=== PATIENT | female | born 2005 | race Caucasian/White ===

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

== ENCOUNTER 2024-01-25 09:36 | Emergency (ER) | payer OTHER, SELFPAY ==
[2024-01-25 10:14] VITALS: BP 113/51; PULSE 95; RESP 14; TEMP 36.6; O2SAT 99
--- NOTE | 2024-01-25 10:35 | ED_ITS ---
HPI - URI/Sore Throat General Chief Complaint: Upper Respiratory Infection Stated Complaint: Sore Throat/Ear Pain Time Seen by Provider: 01/25/24 10:35 Source: patient and RN notes reviewed Mode of arrival: ambulatory Limitations: no limitations History of Present Illness HPI Narrative: 18-year-old female presents with concern for sore throat and ear pain, sinus congestion and pressure for 8 days. She reports she has taken Tylenol. She denies cough. MD elicited complaint: sore throat, nasal congestion and sinus pain Related Data Allergies Allergy/AdvReac Type Severity Reaction Status Date / Time Penicillins Allergy Intermediate HIVES Verified 03/27/23 13:50 Review of Systems Review of Systems: CONSTITUTIONAL: Denies malaise, chills, sweats, or fever. EYES: Denies visual changes, redness, or discharge. ENT: Reports rhinorrhea, congestion, sinus pain, otalgia and sore throat. CARDIOVASCULAR: Denies chest pain, palpitations, or edema. RESPIRATORY: Denies cough. Denies dyspnea. GASTROINTESTINAL: Denies abdominal pain, nausea, vomiting, diarrhea SKIN: Denies rash or itching. MUSCULOSKELETAL: Denies myalgia. NEUROLOGIC: Denies headache. All systems reviewed & are unremarkable except as noted in HPI and below PMFSH Past Medical History Medical History Fibromyalgia Surgical History Surgical History No pertinent past surgical history Family History Family History Mother Family history non-contributory Social History Social History Smoking status: Never smoker Alcohol intake: never Substance use: never Living arrangements: with family Gender identity (if verbalized by the patient): Female Sexual Orientation (if Verbalized by the Patient): Straight or Heterosexual Spiritual care concerns: No Comments At time of signature, agree with nursing past medical, surgical, social and fa trent history. There is no relevant family history pertinent to the presenting complaint Exam Narrative: GENERAL: Well-appearing, well-nourished, and in no acute distress. HEAD: Normocephalic EYES: PERRLA, conjunctivae clear ENT: Nares clear, turbinates edematous and erythematous. Mucous membranes moist. TM pearly vergara with dull light reflex bilaterally; no tragal tenderness. Oropharynx not erythematous without lesions. Tonsils not enlarged and without exudate, no drooling, no hoarseness, no trismus, uvula midline. NECK: Supple. No lymphadenopathy CHEST: Clear to auscultation, breath sounds equal. No wheezing, rhonchi, rales, or stridor. No respiratory distress, speaks in full sentences. HEART: Regular rate and rhythm. No murmur heard. SKIN: Warm, dry, no rash. NEURO: Alert and oriented x3. PSYCH: Normal mood and affect Course Course Emergency Course: Patient is aware of diagnosis, understands and agrees to treatment plan. Anticipatory guidance given. Patient agrees to follow-up as directed and is aware of reasons to seek care at the emergency department. Portions of this record may have been created with voice recognition software Level of Care: Express Care Visit Vital Signs Vital signs: Vital Signs Temperature 97.8 F 01/25/24 10:14 Pulse Rate 95 01/25/24 10:14 Respiratory Rate 14 01/25/24 10:14 Blood Pressure 113/51 L 01/25/24 10:14 Pulse Oximetry 99 01/25/24 10:14 Oxygen Delivery Room Air 01/25/24 10:14 Temperature 97.8 F 01/25/24 10:14 Pulse Rate 95 01/25/24 10:14 Respiratory Rate 14 01/25/24 10:14 Blood Pressure 113/51 L 01/25/24 10:14 Pulse Oximetry 99 01/25/24 10:14 Oxygen Delivery Room Air 01/25/24 10:14 Reviewed. MDM - URI/Sore Throat MDM Narrative Medical decision making narrative: Differential diagnosis considered: Oleary virus, strep pharyngitis, allergic rhinitis, upper respiratory tract infection, sinusitis, rhinosinusitis, nasophar yngitis. viral pharyngitis, otitis media, otitis externa, pneumonia, bronchitis, viral cough syndrome, viral syndrome, and influenza. Exam findings show no acute concerns or changes; patient is non-toxic appearing and is in no distress. Patient is appropriate for outpatient treatment and follow-up. Lab Data Attestation: I reviewed the patient's lab results. Critical Care Time Critical Care Time Critical Care Time: No Discharge Plan Discharge Clinical Impression: Sinusitis Patient Disposition: Home, Self-Care Condition: Stable Instructions: Antibiotic Form, Sinusitis (ED) Additional Instructions: Take medication as prescribed Nonprescription pain medications, such as acetaminophen (eg, Tylenol) or ibuprofen (eg, Motrin, Advil), are recommended for pain. Flushing the nose and sinuses with a saline solution several times per day has been proven to decrease pain associated with congestion and shorten the duration of symptoms. Nasal steroids (such as Flonase, 2 sprays in each nostril daily) can help to reduce swelling inside the nose, usually within two to three days. These drugs have few side effects and relieve symptoms in most people. Oral decongestants (pseudoephedrine and phenylephrine) may be helpful if you have associated symptoms of ear pain or fullness. Nasal decongestant sprays, including oxymetazoline (Afrin) and phenylephrine (Lino-Synephrine), can be used to temporarily treat congestion. However, these sprays should not be used for more than two to three days due to the risk of rebound congestion (when the nose becomes congested constantly unless the medication is used repeatedly), possible addiction, and long-term consequences of frequent use, including persistent nasal dryness and crusting, which is very difficult to treat once it has developed. Medications to thin secretions (such as guaifenesin) may help to clear mucus. Please follow-up with your primary care doctor in the next 1-2 days. If you cannot follow-up with your primary care doctor please go to the ED for any urgent issues. If you have any worsening of symptoms or any other concerns please go to the ED immediately. Prescriptions: New doxycycline monohydrate 100 mg tablet 100 mg PO BID 7 Days Qty: 14 0RF methylprednisolone [Medrol (Coy)] 4 mg tablets,dose pack See Rx Instructions .ROUTE .COMPLEX Qty: 21 0RF Rx Instructions: orally per package directions Follow-up/Referrals: PHYSICIAN,INTERIOR DESIGNER [Primary Care Provider] - Stand Alone Forms: Work/School Release IP Time of Disposition: 10:41
[2024-01-25 11:06] LABS: EDCOVIDSCREEN Negative (Negative); EDINFLUASCREEN Negative (Negative); EDINFLUBSCREEN Negative (Negative); EDSTREPNEGPOS1 Negative (Negative)
== END 2024-01-25 10:43 | disposition home or self-care (01) ==
PROVIDERS: Emergency Provider Nurse Practitioner
DX: J32.9 Chronic sinusitis, unspecified (principal); Z20.822 Contact with and (suspected) exposure to COVID-19
CPT/HCPCS: 87081; 87426; 87804; 87880; 99213; G0463

== ENCOUNTER 2024-05-10 08:57 | Emergency (ER) | payer OTHER, SELFPAY ==
--- NOTE | ~2024-05-10 | CT_ITS ---
EXAMINATION: CT abdomen pelvis w con DATE: 05/10/2024 10:28 INDICATION: Abdominal pain. Nausea and vomiting. TECHNIQUE: Computed tomography (CT) of the abdomen and pelvis was performed with 100 mL Omnipaque 350 intravenous contrast. Automated exposure control and iterative reconstruction technique were employe d. The dose-length product was 191.89 mGy-cm. COMPARISON: None. FINDINGS: The visualized portions of the lung bases are clear without pneumonia or pleural effusion. The heart size is normal. No pericardial effusion. The liver, gallbladder, spleen, pancreas, adrenal glands, and kidneys are normal. There is an intrauterine device in expected position. There are no di lated loops of bowel. The appendix is normal. There are no pathologically enlarged lymph nodes. There is no free intraperitoneal fluid. The bones are unremarkable. IMPRESSION: 1. No etiology for the patient's symptoms. Reviewed, dictated and finalized at location A. MAN
[2024-05-10 09:06] VITALS: BP 98/58; PULSE 116; RESP 20; TEMP 37.2; O2SAT 98
--- OUTSIDE RECORDS SUMMARY | 2024-05-10 09:23 | XMS_ITS | Clinical Summary ---
Author Organization [facility] Address [address] [place] [address] Care Team Providers Care Sales Promotion Director Name Role Phone Evelyne Avilez MD Primary Care Provider [phone] Source Comments [facility],non-owned Affiliates and Associated Physician Practices is amultiple site organization consisting of ambulatory clinics and hospital sitesin [place], [place], [place]. This disclosure is being madepursuant to the Care Everywhere program and may not contain all information available regarding this patient. Last updated 17.[facility] Allergies Active Allergy Reactions Criticality Noted Date Comments Penicillins Rash Medium 02/23/2018 Medications * Be aware that medications may not be up to date on this document. Alwaysverify current medications with the patient. Medication Sig Dispensed Refills Start Date End Date Status DULoxetine (CYMBALTA) 60 MG capsule 60 mg once daily 06/08/2018 Active diphenhydrAMINE (BENADRYL) 25 MG tablet Take 50 mg by mouth at bedtime Active fluticasone propionate (FLONASE) 50 MCG/ACT nasal spray [place] 2 sprays into each nostril once daily Active cetirizine (ZYRTEC) 10 MG tablet Take 10 mg by mouth once daily Active polyethylene glycol 3350 (MIRALAX) packet Take 17 g by mouth once daily 238 g 1 08/04/2018 Active phenol (CHLORASEPTIC) 1.4 % liquid Take by mouth every 2 hours as needed for Sore Throat 20 mL 1 08/03/2018 Active acetaminophen (TYLENOL) 325 MG tablet Take 2 tablets by mouth every 5 hours as needed Maximum allowable Acetaminophen amount = 4 Grams (4000 mg) / 24 hours. 56 tablet 08/03/2018 Active FLUoxetine (PROZAC) 20 MG capsule Take 20 mg by mouth once daily Active traZODone (DESYREL) 50 MG tablet Take 50 mg by mouth at bedtime Active Active Problems Problem Noted Date Diagnosed Date NSAID long-term use 06/28/2018 Gastroesophageal reflux disease 06/28/2018 Abdominal pain, generalized 05/12/2018 Assessment & Plan (08/03/2018 1:18 PM CDT): Assessment: Jacki also notes B/L lower abdominal pain and had clean catch UA with 1+ WBC and trace LE. Consider UTI, will repeat UA as previous clean catch had many squamous cells. No evidence of peritonitis on exam. repeat UA normal. Pain may be from likely mono-like illness or potentially from constipation Plan: - encourage she resume a bowel regimen Assessment & Plan (08/02/2018 9:04 AM CDT): Assessment: NBNB N/V x1, with persistent diffuse abd pain in the setting of chronic abd pain, baseline constipation, and amplifed pain syndrome. Currently scheduled for endoscopy with GI for assessment of pain on 08/08. Current pain possibly 2/2 constipation vs UTI vs cramping 2/2 upcoming menses. Low suspicion regarding need for surgical intervention for appendicitis or cholecystitis, considering physical exam. Waiting for UA collection, and will order Miralax for constipation. Can proceed with CT or x-ray if pain acutely worsens. Plan: - collect UA - Miralax 17g qd PRN Assessment & Plan (08/02/2018 3:51 AM CDT): Assessment: NBNB N/V x1, with persistent diffuse abd pain in the setting of hx of amplifed pain syndrome, and abd pain. Currently scheduled for endoscopy with GI for assessment of pain. Current pain possibly 2/2 constipation, as 2 BM in past two weeks vs UTI, considering dysuria. Also, LMP ~6weeks ago, potentially related to upcoming menses. Low suspicion for surgical intervention for appendicitis or cholecystitis, considering she is in no acute distress and is largely unreactive on physical exam. Will repeat UA to assess dysuria, and order Miralax as needed for constipation. Can proceed with imaging if pain continues. Plan: - repeat UA - Miralax PRN Amplified musculoskeletal pain 05/12/2018 Hypovitaminosis D 03/14/2018 Hypermobile joints 03/14/2018 Leukopenia 03/14/2018 Arthralgia 02/24/2018 VIDA positive 02/24/2018 Scl-70 antibody positive 02/24/2018 Left knee pain 01/26/2014 Resolved Problems Problem Noted Date Diagnosed Date Resolved Date Dehydration 08/01/2018 08/15/2018 Assessment & Plan (08/03/2018 1:19 PM CDT): Assessment: Jacki is a 12yo female who has had over 1 week of pharyngitis, difficulty swallowing, poor fluid intake and decreasing UOP. Jacki received a 20mL/kg NS bolus at the OSH and was placed on IV fluids, given zofran due to nausea and reported some improvement though continued with pharyngitis and poor intake. Given fevers, over 1 week of symptoms, severe pharyngitis and palpable spleen on exam pt fits EBV as most likely cause. Monospot was negative though sensitivity is not great. EBV PCR would not microsoft exchange architect so not sending at this time. Pt improved quite well with decadron and chloroseptic spray. Tolerating PO now. Plan: - saline lock PIV - encourage PO fluids - begin chloraseptic throat spray - would avoid contact sports for 4-6 weeks Assessment & Plan (08/02/2018 9:11 AM CDT): Assessment: 12 year old F with 1.5w of sore throat and fever, with severe pain and PO avoidance leading to acute dehydration. Good fluid status after OSH bolus, and on mIVF. No respiratory distress, uvula deviation, or other signs concerning for focal abscess. Sore throat likely due to EBV vs non-specific viral pharyngitis, bacterial infection less likely due to lack of exudates, cough. Will initiate decadron and chloraseptic spray in order to assist PO tolerance, and continue with current pain regimen. Will continue to provide fluid support until she is able to eat. Plan: - give one time dose Decadron 10mg - start Chloraseptic 1.4% liquid q2h PRN - continue home Cymbalta 60 mg QHS - continue Ibuprofen 400mg q6h PRN, Tylenol 650mg q6h PRN - Benadryl 50mg QHS PRN - Zyrtec 5mg QD - regular diet, as tolerated - vitals q8h - continuous pulse ox - I&Os Assessment & Plan (08/02/2018 3:49 AM CDT): Assessment: 12 year old F with 1.5w of sore throat and fever, with progressive dysphagia leading to acute dehydration. S/p 1L bolus at OSH, with fluid status now reassuring while being maintained on IVF. No respiratory distress, uvula deviation, or other signs concerning for focal abscess. Sore throat likely due to viral pharyngitis vs EBV. Centor score of 2 with negative rapid strep, and little concern otherwise of bacterial source of pain and fever. Will admit for decreased PO tolerance to maintain fluid status, and monitor symptoms overnight. Plan: - admit to [facility] team, Dr. Martinez - restart Cymbalta 60 mg QHS - start Ibuprofen, Tylenol PRN - Benadryl QHS PRN - Zyrtec QD - vitals q8h - continuous pulse ox - I&Os Diarrhea 06/28/2018 07/26/2018 Rash 02/24/2018 03/24/2018 Family History Medical History Relation Name Comments Other Father gallstones, sto mach ulcers Crohn's Disease Maternal Aunt Other Maternal Aunt IBS, anorexia, GERD Ulcerative Colitis Maternal Aunt Cancer - Colon Maternal Grandfather Other Maternal Grandmother cysts i n liver, IBS, gallstones, pancreaitis, GERD Other Other Several aunts a nd cousins with gluten intolerance Cancer - Colon Paternal Grandmother Celiac Disease Neg Hx Relation Name Status Comments Father Maternal Aunt Maternal Grandfather Maternal Grandmother Other Paternal Grandmother Social History Tobacco Use Types Packs/Day Years Used Date Smoking Tobacco: Passive Smo ke Exposure - Never Smoker Smokeless Tobacco: Never Alcohol Use Standard Drinks/Week Comments No 0 (1 standard drink = 0.6 oz pur e alcohol) Sex and Gender Information Value Date Recorded Sex Assigned at Not on file Gender Identity Not on file Sexual Orientation Not on file Last Filed Vital Signs Vital Sign Reading Time Taken Comments Blood Pressure 125/83 09/05/2021 2:00 AM CDT Pulse 97 09/05/2021 2:00 AM CDT Temperature 37.2 C (98.9 F) 09/05/2021 2:00 AM CDT Respiratory Rate 31 09/05/2021 2:00 AM CDT Oxygen Saturation 97% 09/05/2021 2:00 AM CDT Inhaled Oxygen Concentration - - Weight 56.8 kg (125 lb 3.5 oz) 09/05/2021 12:39 AM CDT Height 158.6 cm (5' 2.44 ) 09/05/2018 12:35 PM C DT Body Mass Index - - Plan of Treatment Health Maintenance Due Date Last Done Comments HIV SCREENING 08/21/2019 HPV VACCINE (1 - 3-dose series) 08/21/2019 CHLAMYDIA/GONORRHEA SCREENING 2020 MENINGOCOCCAL (Group B) VACCINE (1 of 2 - Standard) 2020 HEPATITIS C SCREENING 08/16/2022 DTAP/TDAP/TD VACCINES (1 - Tdap) 08/21/2023 HEPATITIS B VACCINE (1 of 3 - 19+ 3-dose series) 08/21/2023 COVID-19 VACCINE (3 - 2023-2 5 season) 2023 08/11/2020, 07/21/2020 INFLUENZA VACCINE (#1) 2023 8, 04/09/2017, 01/07/2015 DEPRESSION SCREENING 03/08/2024 ZOSTER VACCINE (1 of 2) 2054 HIB VACCINE Aged Out No longer eligi ble based on patient's age to complete this topic MENINGOCOCCAL VACCINE Aged Out No ely maria esther eligible based on patient's age to complete this topic PNEUMOCOCCAL VACCINE Aged Out No long er eligible based on patient's age to complete this topic Advance Directives * Full Code (Latest Code Status on File) Date Activated Date Inactivated Comments 08/02/2018 2:04 AM 08/03/2018 4:29 PM Care Teams Sales Promotion Director Relationship Specialty Start Date End Date Evelyne Avilez MD [address] [address] PCP - General 02/16/18
--- OUTSIDE RECORDS SUMMARY | 2024-05-10 09:24 | XMS_ITS | Patient Health Summary ---
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 381 100 - 400 10 3/uL 09/05/2021 12:24 AM [facility] RDW-SD 40.4 36.0 - 50.0 fL 09/05/2021 12:24 AM [facility] RDW-CV 12.1 11.5 - 14.0 % 09/05/2021 12:24 AM [facility] MPV 9.9(H) 6.0 - 9.5 fL 09/05/2021 12:24 AM [facility] nRBC Absolute 0.00 0 10 3/uL 09/05/2021 12:24 AM [facility] nRBC Auto 0.0 0 /100 WBC 09/05/2021 12:24 AM [facility] Blood BLOOD SPECIMEN / Unknown Venipuncture / Unknown 09/04/2021 11:47 PM CDT 09/04/2021 11:55 PM CDT Sharda Fatima MD LAB - HEMATOLOGY ORD ERABLES [facility] [address] [place] [address], [facility] [phone] * (ABNORMAL) COMPREHENSIVE METABOLIC PANEL (09/04/2021 11:47 PM CDT) Only the most recent of4 resultswithin the time period is included. BUN 11 5 - 19 mg/dL 09/05/2021 12:21 AM [facility] Creatinine 0.69 0.56 - 0.96 mg/dL 09/05/2021 12:21 AM [facility] Sodium 135(L) 136 - 145 mmol/L 09/05/2021 12:21 AM [facility] Potassium 3.3(L) 3.5 - 5.1 mmol/L 09/05/2021 12:21 AM [facility] Chloride 107 98 - 107 mmol/L 09/05/2021 12:21 AM [facility] CO2 20 20 - 28 mmol/L 09/05/2021 12:21 AM [facility] Glucose 143(H) 70 - 115 mg/dL 09/05/2021 12:21 AM [facility] Calcium 9.0 8.4 - 10.2 mg/dL 09/05/2021 12:21 AM [facility] Protein Total 7.3 6.0 - 8.3 g/dL 09/05/2021 12:21 AM [facility] Albumin 4.1 3.4 - 5.0 g/dL 09/05/2021 12:21 AM [facility] Bilirubin Total 0.3 0.3 - 1.2 mg/dL 09/05/2021 12:21 AM [facility] Alkaline Phosphatase 82(L) 100 - 390 U/L 09/05/2021 12:21 AM [facility] ALT 19 5 - 55 U/L 09/05/2021 12:21 AM [facility] AST 24 3 - 35 U/L 09/05/2021 12:21 AM [facility] Anion Gap 11 8 - 18 09/05/2021 12:21 AM [facility] BUN/Creatinine Ratio 16 7 - 23 09/05/2021 12:21 AM [facility] Osmolality Calculated 282 270 - 300 mOsm/kg 09/05/2021 12:21 AM [facility] Blood BLOOD SPECIMEN / Unknown Venipuncture / Unknown 09/04/2021 11:47 PM CDT 09/04/2021 11:55 PM CDT Sharda Fatima MD LAB - CHEMISTRY ALLY BERMUDEZ Performing Organization Address [facility]/ZIP Co de Phone Number [address] [address], [facility] [phone] * LIPASE BLOOD (09/04/2021 11:47 PM CDT) Lipase 15 8 - 78 U/L 09/05/2021 12:21 AM CDT [facility] Blood BLOOD SPECIMEN / Unknown Venipuncture / Unknown 09/04/2021 11:47 PM CDT 09/04/2021 11:55 PM CDT Sharda Fatima MD LAB - CHEMISTRY ALLY BERMUDEZ Performing Organization Address [facility] Co de Phone Number [address] [address], [facility] [phone] * ALCOHOL ETHYL BLOOD (09/04/2021 11:47 PM CDT) Ethanol (mg/dL) <10 <10 mg/dL 12:21 AM CDT [facility] Ethanol Calculated (g/dL) <0.010 <=0.010 g/dL 09/05/2021 12:21 AM CDT [facility] Blood BLOOD SPECIMEN / Unknown Venipuncture / Unknown 09/04/2021 11:47 PM CDT 09/04/2021 11:55 PM CDT Narrative [facility] - 09/05/2021 12:21 AM CDT Ethanol Interp <10: None Detected. Depression of CLAIMS COUNSEL: >100 mg/dl Potentially Critical: >250 mg/dl Potentially Fatal >400 mg/dl Ethanol in the patient's blood will contribute to the osmolar gap. Ethanol's contribution to the osmolar gap can be estimated by dividing the concentration of ethanol in mg/dL by 4.6. This test is for clinical use only and does not equal a CAN for legal purposes. Sharda Fatima MD LAB - CHEMISTRY ALLY BERMUDEZ [facility] [address] [place] [address], [facility] [phone] * HELICOBACTER PYLORI UREASE (STL) (09/05/2018 1:53 PM CDT) Helicobacter pylori Urease Initial Negative Negative 09/06/2018 4:03 PM CDT [facility] Helicobacter pylori Urease Final Negative Negative 09/06/2018 4:03 PM CDT [facility] Comment:This is an appended report. These results have been appended to a previously preliminary verified report. Microbiology GASTRIC BIOPSY SPECIMEN / Unknown Collection / Unknown 09/05/2018 1:53 PM CDT 09/05/2018 2:07 PM CDT Joana Nieto PAYROLL BENEFITS ADMINISTRATOR-YARD INSPECTOR LAB - CECILIA ROBIOLOGY ORDERABLES Performing Organization Address [facility]/ZIP Co de Phone Number [facility] [address] [place] [address] * GROSS + MICRO EXAM (STL) (09/05/2018 1:48 PM CDT) Case Report Surgical Pathology Report Case: [id number] Authorizing Provider: Nichole Iniguez MD Collected: 09/05/2018 01:49 PM Ordering Location: ENDOSCOPY SERVICES Received: 09/06/2018 08:04 AM Pathologist: Kirby Judge MD Specimens: A) - Stomach Biopsy B) - Esophageal Biopsy C) - Duodenal Biopsy D) - Ileum Terminal, biopsy E) - Cecum Biopsy F) - Colon Ascending Biopsy G) - Colon Transverse Biopsy H) - Colon Descending Biopsy I) - Rectosigmoid Biopsy 09/07/2018 11:49 PM CDT [facility] Final Diagnosis A) Stomach, Biopsy: - Chronic superficial gastritis, mild. B) Esophagus, Biopsy: - No pathologic diagnosis. C) Small Intestine, Duodenum, Biopsy: - No pathologic diagnosis. D) Small Intestine, Terminal Ileum, Biopsy: - Acute ileitis, mild. E) Large Intestine, Cecum, Biopsy: - No pathologic diagnosis. F) Large Intestine, Ascending Colon, Biopsy: - No pathologic diagnosis. G) Large Intestine, Transverse Colon, Biopsy: - No pathologic diagnosis. H) Large Intestine, Descending Colon, Biopsy: - No pathologic diagnosis. I) Large Intestine, Rectosigmoid, Biopsy: - No pathologic diagnosis. 09/07/2018 11:49 PM [facility] Clinical History The patient is a 13-year-old girl with abdominal pain who underwent upper endoscopy and colonoscopy. The findings were erosions in the antrum and gastritis. 09/07/2018 11:49 PM [facility] Gross Description The specimens are received fixed in formalin in nine containers for gross and microscopic examination. All containers are labeled with the patient's name, Jacki Ramos. Specimen A, stomach biopsy, consists of two 4-mm soft, yellow-villa tissue fragments submitted in toto as A1. Specimen B, esophageal biopsy, consists of a 3-mm soft, vergara-pink tissue fragment submitted in toto as B1. Specimen C, duodenal biopsy, consists of two soft, yellow-villa tissue fragments, 3 mm and 4 mm in greatest dimension. The specimen is submitted in toto as C1. Specimen D, terminal ileum biopsy, consists of three soft, yellow-villa tissue fragments, 4 mm to 5 mm in greatest dimension. The specimen is submitted in toto as D1. Specimen E, cecum biopsy, consists of two soft, yellow-villa tissue fragments, 3 mm and 4 mm in greatest dimension. The specimen is submitted in toto as E1. Specimen F, ascending colon bio [sic], consists of two soft, yellow-villa tissue fragments, 2 mm and 3 mm in greatest dimension. The specimen is submitted in toto as F1. Specimen G, transverse colon bi [sic], consists of two 3-mm soft, yellow-villa tissue fragments submitted in toto as G1. Specimen H, descending colon bi [sic], consists of two 3-mm soft, yellow-villa tissue fragments submitted in toto as H1. Specimen I, rectosigmoid biopsy, consists of two 3-mm soft, pale villa tissue fragments submitted in toto as I1. (CT/jam) 09/07/2018 11:49 PM [facility] Microscopic Description A) 3 H&E; B) 3 H&E; C) 3 H&E; D) 3 H&E; E) 3 H&E; F) 3 H&E; G) 3 H&E; H) 3 H&E; I) 3 H&E. Sections of specimen A show fragments of gastric mucosa with mild expansion of the lamina propria by mononuclear cells, an occasional lymphoid aggregate, and several glands with attenuated epithelium. There is no significant acute inflammation. No granulomata are present. Sections of specimen B show a single fragment of unremarkable esophageal epithelium. Sections of specimen C show fragments of unremarkable small intestinal mucosa. Sections of specimen D show a single fragment of unremarkable large intestinal mucosa and fragments of small intestinal mucosa with prominence of lymphoid tissue (Peyer's patch) and occasional neutrophils within the lamina propria and surface epithelium. No crypt abscesses or granulomata are present. There is no significant architectural distortion. Sections of specimens E, F, G, H, and I show similar histologic features: the specimens comprise fragments of unremarkable large intestinal mucosa. (DSB) 09/07/2018 11:49 PM [facility] Disclaimer The performance characteristics of all immunohistochemical and indirect immunofluorescence stains (if any) cited in this report were determined by the [facility] in compliance with Clinical Laboratory Improvement Amendments of 1988 (CLIA'88) regulations. Some of these tests rely on the use of analyte-specific reagents and are subject to specific labeling requirements by the U.S. Food and Drug Administration (FDA). Such tests were developed by the [facility] of [facility] and have not been cleared or approved by the FDA. The FDA has determined that such clearance or approval is not necessary. These tests are used for clinical purposes and should not be regarded as investigational or for research. This case has been personally reviewed and interpreted by the attending (teaching) pathologist. 09/07/2018 11:49 PM [facility] Embedded Images 09/07/2018 11:49 PM [facility] Pathology/Cytology ESOPHAGEAL BIOPSY SPECIMEN / Unknown 09/05/2018 1:48 PM CDT 09/06/2018 8:04 AM CDT Miscellaneous samples (specimen) BIOPSY OF STOMACH / Unknown 09/05/2018 1:49 PM CDT 09/06/2018 8:04 AM CDT Miscellaneous samples (specimen) DUODENAL BIOPSY SPECIMEN / Unknown 09/05/2018 1:49 PM CDT 09/06/2018 8:04 AM CDT Miscellaneous samples (specimen) TERMINAL ILEUM RESECTION SPECIMEN / Unknown 09/05/2018 2:04 PM CDT 09/06/2018 8:04 AM CDT Miscellaneous samples (specimen) ENTIRE CECUM / Unknown 09/05/2018 2:43 PM CDT 09/06/2018 8:04 AM CDT Miscellaneous samples (specimen) COLONIC BIOPSY SPECIMEN / Unknown 09/05/2018 2:44 PM CDT 09/06/2018 8:04 AM CDT Miscellaneous samples (specimen) SPECIMEN FROM COLON OBTAINED BY TRANSVERSE COLECTOMY / Unknown 09/05/2018 2:44 PM CDT 09/06/2018 8:04 AM CDT Miscellaneous samples (specimen) COLONIC BIOPSY SPECIMEN / Unknown 09/05/2018 2:45 PM CDT 09/06/2018 8:04 AM CDT Miscellaneous samples (specimen) RECTOSIGMOID STRUCTURE / Unknown 09/05/2018 2:47 PM CDT 09/06/2018 8:04 AM CDT Nichole Iniguez MD LAB - PATHOLOGY/CYTO LOGY ORDERABLES [facility] [address] [place] [id number] * HCG URINE QUALITATIVE - POCT (IP) INTERFACED (09/05/2018 1:31 PM CDT) HCG Qual Urine Negative Negative 09/05/2018 1:28 PM CDT [facility] Urine URINE / Unknown 09/05/2018 1 :31 PM CDT 09/05/2018 1:28 PM CDT Nichole Iniguez MD LAB - POINT OF CARE ORDERABLES [facility] [address] [place] [address] * HCG URINE QUAL POCT NOTIFICATION (09/05/2018 12:30 PM CDT) Comment Notification Label Only - See Separate Report 09/05/2018 2:00 PM CDT [facility] Urine URINE / Unknown 09/05/2018 1 2:30 PM CDT 09/05/2018 12:30 PM CDT Nichole Iniguez MD LAB - URINALYSIS ORD ERABLES [facility] [address] [place] [address] * ENDOSCOPY, COLON, DIAGNOSTIC (09/05/2018 11:59 AM CDT) Report Endoscopy POC _ Patient Name: Jacki Ramos Date of : 2005 Admit Type: Outpatient Age: 13 Gender: Female Race: White Attending MD: Nichole Iniguez , Order #: [id number] _ Procedure: Colonoscopy Indications: Generalized abdominal pain Providers: Nichole Iniguez Referring MD: Evelyne Avilez MD Medicines: Monitored Anesthesia Care Complications: No immediate complications. Estimated blood loss: Minimal. _ Procedure: After I obtained informed consent, the scope was passed under direct vision. Throughout the procedure, the patient's blood pressure, pulse, and oxygen saturations were monitored continuously. The Colonoscope was introduced through the anus and advanced to the terminal ileum. The colonoscopy was performed without difficulty. The patient tolerated the procedure well. The quality of the bowel preparation was adequate. The entire colon was examined. Findings: The perianal and digital rectal examinations were normal. The cleanout was not complete. there was large amount of liquid stool. This had to be suctioned, which rendered the procedure lengthier. The colon (entire examined portion) appeared normal. Biopsies were taken with a cold forceps for histology. Estimated blood loss was minimal. The terminal ileum appeared normal. Biopsies were taken with a cold forceps for histology. Estimated blood loss was minimal. Impression: - The entire examined colon is normal except for excess tortuosity. Biopsied. - The examined portion of the ileum was normal. Biopsied. Recommendation: - Discharge patient to home (with parent). - Await pathology results. - Return to GI clinic in 6 weeks. Procedure Code(s): --- Professional --- 31916, Colonoscopy, flexible; with biopsy, single or multiple --- Technical --- 20403, Colonoscopy, flexible; with biopsy, single or multiple Diagnosis Code(s): --- Professional --- R10.84, Generalized abdominal pain --- Technical --- R10.84, Generalized abdominal pain CPT copyright 2017 [employer]. All rights reserved. The codes documented in this report are preliminary and upon grape picker review may be revised to meet current compliance requirements. Dr. Nichole Iniguez MD Nichole Iniguez, 09/05/2018 2:59:16 PM Number of Addenda: 0 Note Initiated On: 08/31/2018 11:59 AM Procedure Date: 09/05/2018 11:59:00 AM This report has been signed electronically. [facility] 09/05/2018 11:5 9 AM CDT Joana Nieto PAYROLL BENEFITS ADMINISTRATOR-YARD INSPECTOR GI PROCED URE ORDERABLES [facility] [address] [place] [address] * EGD (09/05/2018 11:59 AM CDT) Report Endoscopy POC _ Patient Name: Jacki Ramos Date of : 2005 Admit Type: Outpatient Age: 13 Gender: Female Race: White Attending MD: Nichole Iniguez , Order #: [id number] _ Procedure: Upper GI endoscopy Indications: Generalized abdominal pain Providers: Nichole Iniguez Referring MD: Evelyne Avilez MD Medicines: Monitored Anesthesia Care Complications: No immediate complications. Estimated blood loss: Minimal. _ Procedure: After obtaining informed consent, the endoscope was passed under direct vision. Throughout the procedure, the patient's blood pressure, pulse, and oxygen saturations were monitored continuously. The Endoscope was introduced through the mouth, and advanced to the second part of duodenum. The upper GI endoscopy was accomplished without difficulty. The patient tolerated the procedure well. Findings: The examined esophagus was normal. Biopsies were taken with a cold forceps for histology. Estimated blood loss was minimal. A few localized, non-bleeding erosions were found in the gastric antrum. There were no stigmata of recent bleeding. Biopsies were taken with a cold forceps for Helicobacter pylori testing using CLOtest. Estimated blood loss was minimal. The examined duodenum was normal. Biopsies were taken with a cold forceps for histology. Estimated blood loss was minimal. Impression: - Normal esophagus. Biopsied. - Non-bleeding erosive gastropathy. Biopsied. - Normal examined duodenum. Biopsied. Recommendation: - Discharge patient to home (with parent). - Await pathology results. - Return to GI clinic in 6 weeks. Procedure Code(s): --- Professional --- 65377, Esophagogastrodu odenoscopy, flexible, transoral; with biopsy, single or multiple --- Technical --- 29851, Esophagogastrodu odenoscopy, flexible, transoral; with biopsy, single or multiple Diagnosis Code(s): --- Professional --- R10.84, Generalized abdominal pain --- Technical --- R10.84, Generalized abdominal pain CPT copyright 2017 [employer]. All rights reserved. The codes documented in this report are preliminary and upon grape picker review may be revised to meet current compliance requirements. Dr. Nichole Iniguez MD Nichole Iniguez, 09/05/2018 3:01:57 PM Number of Addenda: 0 Note Initiated On: 08/31/2018 11:59 AM Procedure Date: 09/05/2018 11:59:00 AM This report has been signed electronically. [facility] 09/05/2018 11:5 9 AM CDT Joana Nieto PAYROLL BENEFITS ADMINISTRATOR-YARD INSPECTOR GI PROCED URE ORDERABLES Performing Organization Address City/State/[facility] Co de Phone Number [facility] [address] [place] [address] * URINALYSIS W/MICROSCOPIC REFLEX TO CULTURE (08/02/2018 8:49 AM CDT) Only the most recent of4 resultswithin the time period is included. Color UA Straw Straw, Yellow 08/02/2018 9:10 AM CDT [facility] Clarity UA Clear Clear 08/02/2018 9:10 AM CDT [facility] Glucose UA Negative Negative 08/02/2018 9:10 AM CDT [facility] Bilirubin UA Negative Negative 08/02/2018 9:10 AM [facility] Ketone UA Negative Negative 08/02/2018 9:10 AM [facility] Specific [place] UA 1.006 1.005 - 1.030 08/02/2018 9:10 AM [facility] Blood UA Negative Negative 08/02/2018 9:10 AM [facility] pH UA 6.0 5.0 - 8.0 pH 08/02/2018 9:10 AM [facility] Protein UA Negative Negative 08/02/2018 9:10 AM [facility] Urobilinogen UA Negative Negative mg/dL 08/02/2018 9:10 AM [facility] Nitrite UA Negative Negative 08/02/2018 9:10 AM [facility] Leukocyte UA Negative Negative 08/02/2018 9:10 AM [facility] RBC UA 0-2 None Seen, 0-2, 3-5 # /hpf 08/02/2018 9:10 AM [facility] WBC UA 0-5 None Seen, 0-5 # /hpf 08/02/2018 9:10 AM [facility] Bacteria UA None Seen None Seen 08/02/2018 9:10 AM [facility] Squamous Epithelial Cells 0-2 None Seen, 0-2, 3-5 /hpf 08/02/2018 9:10 AM [facility] Mucus UA 1+ /LPF 08/02/2018 9:10 AM [facility] Reflex Status Culture not indicated 08/02/2018 9:10 AM [facility] Urine URINE SPECIMEN OBTAINED BY CLEAN CATCH PROCEDURE / Unknown Collection / Unknown 08/02/2018 8:49 AM T 08/02/2018 8:54 AM [facility] Narrative [facility] - 08/02/2018 9:10 AM [facility] Anjali Tran MD LAB - URINALYSIS ORD ERABLES [facility] [address] [place] [address] * CULTURE URINE REFLEXED I (05/20/2018 4:28 PM CDT) Reflexive Urine Culture NO CULTURE INDICATED [facility] Comment: Test Performed at: [employer] [id number] [place] [address] HEIDY VASQUEZ DO,MPH 05/20/2018 4:28 PM CDT 05/20/2018 4:29 PM CDT Link Roland DO LAB - MICROB IOLOGY ORDERABLES Performing Organization Address [facility] [place] [place] [address] * C-REACTIVE PROTEIN (05/20/2018 4:28 PM CDT) Only the most recent of3 resultswithin the time period is included. C-Reactive Protein <0.2 <8.0 mg/L [facility] Comment: Test Performed at: [place] [address] HEIDY VASQUEZ DO,MPH Blood BLOOD SPECIMEN / Unknown 05/20/2018 4:28 PM CDT 05/20/2018 4:29 PM CDT Link Roland DO LAB - CHEMIS TRY ORDERABLES Performing Organization Address [facility] Co de Phone Number [facility] [address] [place] [address] * ERYTHROCYTE SEDIMENTATION RATE (05/20/2018 4:28 PM CDT) Only the most recent of3 resultswithin the time period is included. Erythrocyte Sedimentation Rate Westergren 6 < OR = 20 mm/h [facility] Comment: Test Performed at: [employer] [place] [address] HEIDY VASQUEZ DO,MPH Blood BLOOD SPECIMEN / Unknown 05/20/2018 4:28 PM CDT 05/20/2018 4:29 PM CDT Link Roland DO LAB - HEMATO LOGY ORDERABLES Performing Organization Address City/[facility]/ZIP Co de Phone Number [facility] [address] [place] [address] * CHROMATIN ANTIBODY (03/03/2018 2:13 PM LOW PRESSURE BOILER TENDER) Chromatin Nucleosomal Antibody <1.0 NEG <1.0 NEG AI [facility] Comment: Test Performed at: [employer] [id number] [facility] [place] [address] HEIDY VASQUEZ DO,MPH Blood BLOOD SPECIMEN / Unknown 03/03/2018 2:13 PM LOW PRESSURE BOILER TENDER 03/03/2018 2:15 PM LOW PRESSURE BOILER TENDER [employer] [facility] - SEROLO GY ORDERABLES Performing Organization Address [facility] [place] [address] * CULTURE URINE REFLEXED (03/03/2018 2:13 PM LOW PRESSURE BOILER TENDER) [facility] Reflexive Urine Culture CULTURE INDICATED - RESULTS TO FOLLOW [facility] Comment: Test Performed at: [employer] [address] [place] [address] HEIDY VASQUEZ DO,MPH 03/03/2018 2:13 PM LOW PRESSURE BOILER TENDER 03/03/2018 2:15 PM LOW PRESSURE BOILER TENDER Link Vikas Luan [facility] - MICROB IOLOGY ORDERABLES Performing Organization Address [facility] [place] [address] * TISSUE TRANSGLUTAMINASE AB IGA (03/03/2018 2:13 PM LOW PRESSURE BOILER TENDER) Pathologist [facility] TTG Antibody IgA <1 <4 U/mL [facility] Comment: Value Interpretation <4 U/mL: No Antibody Detected >or=4 U/mL: Antibody Detected Test Performed at: [facility]/[address] [address] ALEJANDRO HERNÁNDEZ MD,PHD Blood BLOOD SPECIMEN / Unknown 03/03/2018 2:13 PM LOW PRESSURE BOILER TENDER 03/03/2018 2:15 PM LOW PRESSURE BOILER TENDER Link Duffypraveen [facility] - SEROLO GY ORDERABLES Performing Organization Address [facility] [place] [address] * MARSH (SM) ANTIBODY SHERRI (03/03/2018 2:13 PM LOW PRESSURE BOILER TENDER) SM Antibody <1.0 NEG <1.0 NEG AI [facility] Comment: Test Performed at: [facility] [place] [address] HEIDY VASQUEZ DO,MPH Blood BLOOD SPECIMEN / Unknown 03/03/2018 2:13 PM LOW PRESSURE BOILER TENDER 03/03/2018 2:15 PM LOW PRESSURE BOILER TENDER Link Augustinfátima [facility] Adar ITIS TRY ORDERABLES Performing Organization Address [facility] Co de Phone Number [facility] [id number] [place] [address] * AUTOMOTIVE PROFESSIONAL ANTIBODY (03/03/2018 2:13 PM LOW PRESSURE BOILER TENDER) Pathologist [facility] AUTOMOTIVE PROFESSIONAL Antibody <1.0 NEG <1.0 NEG AI [facility] Comment: Test Performed at: [facility] [place] [address] HEIDY VASQUEZ DO,MPH Blood BLOOD SPECIMEN / Unknown 03/03/2018 2:13 PM LOW PRESSURE BOILER TENDER 03/03/2018 2:15 PM LOW PRESSURE BOILER TENDER Link Augustinfátima [facility] [employer] TRY ORDERABLES Performing Organization Address [facility] [place] [address] * (ABNORMAL) VIDA BLOOD TITER (03/03/2018 2:13 PM LOW PRESSURE BOILER TENDER) Only the most recent of2 resultswithin the time period is included. Pathologist [facility] VIDA Pattern SPECKLED( A) [facility] Comment: Speckled pattern is associated with mixed connective tissue disease (MCTD), systemic lupus erythematosus (SLE), Sjogren's syndrome, dermatomyositis, and systemic sclerosis/polymyositis overlap. VIDA 1:160(H) titer [facility] Comment: Reference Range <1:40 Negative 1:40-1:80 Low Antibody Level >1:80 Elevated Antibody Level Test Performed at: [facility] [place] [address] HEIDY VASQUEZ DO,MPH 03/03/2018 2:13 PM LOW PRESSURE BOILER TENDER 03/03/2018 2:15 PM LOW PRESSURE BOILER TENDER Link Roland DO LAB - CHEMIS TRY ORDERABLES Performing Organization Address [facility]/ZIP Co de Phone Number [facility] [address] [place] [address] * (ABNORMAL) VIDA BLOOD SCREEN W/REFLEX TITER (03/03/2018 2:13 PM LOW PRESSURE BOILER TENDER) Pathologist [facility] VIDA Screen POSITIVE( A) NEGATIVE [facility] Comment: VIDA IFA is a first line screen for detecting the presence of up to approximately 150 autoantibodies in various autoimmune diseases. A positive VIDA IFA result is suggestive of autoimmune disease and reflexes to titer and pattern. Further laboratory testing may be considered if clinically indicated. Visit Physician FAQs for interpretation of all antibodies in the [place], prevalence, and association with diseases at http://education.Bitvore/ faq/KRV783 Test Performed at: [facility] [address] [place] [address] HEIDY VASQUEZ DO,MPH VIDA Pattern SPECKLED( A) [facility] Comment: Speckled pattern is associated with mixed connective tissue disease (MCTD), systemic lupus erythematosus (SLE), Sjogren's syndrome, dermatomyositis, and systemic sclerosis/polymyositis overlap. VIDA 1:160(H) titer [facility] Comment: Reference Range <1:40 Negative 1:40-1:80 Low Antibody Level >1:80 Elevated Antibody Level Test Performed at: [facility] [address] [place] [address] HEIDY VASQUEZ DO,MPH Blood BLOOD SPECIMEN / Unknown 03/03/2018 2:13 PM LOW PRESSURE BOILER TENDER 03/03/2018 2:15 PM LOW PRESSURE BOILER TENDER Link Roland DO LAB - CHEMIS TRY ORDERABLES [facility] [address] [place] [address] * SS-A/SS-B (SJOGRENS) ANTIBODY PANEL (03/03/2018 2:13 PM LOW PRESSURE BOILER TENDER) Pathologist [facility] Sjogren's Antibodies (SSA) <1.0 NEG <1.0 NEG AI [facility] Sjogren's Antibodies (SSB) <1.0 NEG <1.0 NEG AI [facility] Comment: Test Performed at: [place] [address] HEIDY VASQUEZ DO,MPH Blood BLOOD SPECIMEN / Unknown 03/03/2018 2:13 PM LOW PRESSURE BOILER TENDER 03/03/2018 2:15 PM LOW PRESSURE BOILER TENDER Link Roland DO LAB - CHEMIS TRY ORDERABLES Performing Organization Address [facility] Co de Phone Number [place] [phone] [place] [address] * SCLERODERMA 70 (SCL) ANTIBODY (03/03/2018 2:13 PM LOW PRESSURE BOILER TENDER) Only the most recent of2 resultswithin the time period is included. SCL-70 Antibody <1.0 NEG <1.0 NEG AI [facility] Comment: Test Performed at: [place] [address] HEIDY VASQUEZ DO,MPH Blood BLOOD SPECIMEN / Unknown 03/03/2018 2:13 PM LOW PRESSURE BOILER TENDER 03/03/2018 2:15 PM LOW PRESSURE BOILER TENDER Link Roland DO LAB - CHEMIS TRY ORDERABLES Performing Organization Address [facility] [place] [address] * DNA ANTIBODY DOUBLE STRANDED (03/03/2018 2:13 PM LOW PRESSURE BOILER TENDER) dsDNA Antibody <1 IU/mL [facility] Comment: IU/mL Interpretation < or = 4 Negative 5-9 Indeterminate > or = 10 Positive Test Performed at: [facility] [address] HEIDY VASQUEZ DO,MPH Blood BLOOD SPECIMEN / Unknown 03/03/2018 2:13 PM LOW PRESSURE BOILER TENDER 03/03/2018 2:15 PM LOW PRESSURE BOILER TENDER Link Roland DO LAB - HEMATO LOGY ORDERABLES Performing Organization Address [facility] Co de Phone Number [facility] [phone] [place] [address] * (ABNORMAL) VITAMIN D 25-HYDROXY (03/03/2018 2:13 PM LOW PRESSURE BOILER TENDER) Vitamin D, 25 Hydroxy 17(L) 30 - 100 ng/mL [facility] Comment: Vitamin D Status 25-OH Vitamin D: Deficiency: <20 ng/mL Insufficiency: 20 - 29 ng/mL Optimal: > or = 30 ng/mL For 25-OH Vitamin D testing on patients on D2-supplementation and patients for whom quantitation of D2 and D3 fractions is required, the QuestAssureD(TM) 25-OH VIT D, (D2,D3), LC/MS/MS is recommended: order code 51672 (patients >2yrs). For more information on this test, go to: http://education.Parkplatzking/faq/ESI889 (This link is being provided for informational/educational purposes only.) Test Performed at: [facility] [address] HEIDY VASQUEZ DO,MPH Blood BLOOD SPECIMEN / Unknown 03/03/2018 2:13 PM LOW PRESSURE BOILER TENDER 03/03/2018 2:15 PM LOW PRESSURE BOILER TENDER Link Roland DO LAB - CHEMIS TRY ORDERABLES Performing Organization Address [facility] Co de Phone Number [employer] [address] [place] [address] * CULTURE URINE (03/03/2018 2:13 PM LOW PRESSURE BOILER TENDER) Only the most recent of2 resultswithin the time period is included. Pathologist [facility] Culture [facility] Comment: CULTURE, URINE, ROUTINE MICRO NUMBER: [id number] TEST STATUS: FINAL SPECIMEN SOURCE: URINE SPECIMEN QUALITY: ADEQUATE RESULT: No Growth REPORT COMMENT: FASTING:NO Test Performed at: [facility] [id number] HEIDY VASQUEZ DO,MPH 03/03/2018 2:13 PM LOW PRESSURE BOILER TENDER 03/03/2018 2:15 PM LOW PRESSURE BOILER TENDER Link Roland DO LAB - MICROB IOLOGY ORDERABLES Performing Organization Address [facility] Co de Phone Number [employer] [address] [place] [address] * (ABNORMAL) COMPLEMENT C4 (03/03/2018 2:13 PM LOW PRESSURE BOILER TENDER) Complement C4 10(L) 13 - 46 mg/dL [facility] Comment: Test Performed at: [facility] [place] [address] HEIDY VASQUEZ DO,MPH Blood BLOOD SPECIMEN / Unknown 03/03/2018 2:13 PM LOW PRESSURE BOILER TENDER 03/03/2018 2:15 PM LOW PRESSURE BOILER TENDER Link Roland DO LAB - SEROLO GY ORDERABLES Performing Organization Address [facility] [place] [address] * TSH (03/03/2018 2:13 PM LOW PRESSURE BOILER TENDER) Pathologist [facility] TSH 1.83 mIU/L [facility] Comment: Reference Range 1-19 Years 0.50-4.30 Ranges First trimester 0.26-2.66 Second trimester 0.55-2.73 Third trimester 0.43-2.91 Test Performed at: [facility] [place] [address] HEIDY VASQUEZ DO,MPH Blood BLOOD SPECIMEN / Unknown 03/03/2018 2:13 PM LOW PRESSURE BOILER TENDER 03/03/2018 2:15 PM LOW PRESSURE BOILER TENDER Link Roland DO LAB - CHEMIS TRY ORDERABLES Performing Organization Address [facility] [place] [address] * IMMUNOGLOBULINS IGG/IGM/IGA PANEL (03/03/2018 2:13 PM LOW PRESSURE BOILER TENDER) Pathologist [facility] IgA 188 70 - 432 mg/dL [facility] IgG 1277 893 - 1823 mg/dL [facility] IgM 68 52 - 367 mg/dL [facility] Comment: Test Performed at: [facility] SHERRI Kal[address] [facility]ITAL[facility] [place] [address] HEIDY VASQUEZ DO,MPH Blood BLOOD SPECIMEN / Unknown 03/03/2018 2:13 PM LOW PRESSURE BOILER TENDER 03/03/2018 2:15 PM LOW PRESSURE BOILER TENDER Link Roland DO LAB - CHEMIS TRY ORDERABLES [facility] [address] [place] [address] * COMPLEMENT C3 (03/03/2018 2:13 PM LOW PRESSURE BOILER TENDER) Complement C3 110 82 - 173 mg/dL [facility] Comment: Test Performed at: [facility] [address] [address] HEIDY VASQUEZ DO,MPH Blood BLOOD SPECIMEN / Unknown 03/03/2018 2:13 PM LOW PRESSURE BOILER TENDER 03/03/2018 2:15 PM LOW PRESSURE BOILER TENDER Link Roland DO LAB - CHEMIS TRY ORDERABLES Performing Organization Address [facility] Co de Phone Number [facility] [address] [place] [address] * CT SINUS WO CONTRAST (02/18/2018 10:18 AM LOW PRESSURE BOILER TENDER) Anatomical Region Laterality Modality Head Computed Tomogra phy 02/18/2018 10:5 8 AM LOW PRESSURE BOILER TENDER Impressions 02/18/2018 11:29 AM LOW PRESSURE BOILER TENDER Paranasal sinus inflammatory changes as outlined. Polypoid mucosal thickening in the right maxillary and right sphenoid sinuses and scattered opacification in the ethmoid air cells. There is fluffy secretions within the sphenoid and frontal sinuses. Reading Radiologist: Elisabeth Ferguson MD on 02/18/2018 at 11:29 AM Narrative 02/18/2018 11:29 AM LOW PRESSURE BOILER TENDER CT SINUS WO CONTRAST*[id number] EXAMINATION: Computed tomography (CT) of the paranasal sinuses without contrast HISTORY: Chronic sinusitis, unspecified TECHNIQUE: CT of the paranasal sinuses was performed without contrast according to standard protocol. DOSE: CTDIvol: 20.20 mGy, DLP: 287.06 mGy-cm The reported CTDIvol (mGy) and DLP (mGy-cm) values are generated from scan acquisition factors based on a 32 cm body phantom or 16 cm head phantom and may underestimate or overestimate the actual patient dose based on patient size and other factors. COMPARISON: None available. FINDINGS: Post-Surgical Findings: None Sinus Chambers: There is moderate polypoid mucosal thickening in the right maxillary sinus with additional scattered bubbly secretions. There is minimal mucosal thickening in the left maxillary sinus. There are scattered opacification in the ethmoid air cells. There is moderate polypoid mucosal thickening in the right sphenoid sinus. There is fluffy secretions in the left sphenoid sinus and in the frontal sinuses. Nasal Cavities: Visualized nasal cavities are patent but there is mild secretions. Developmental Anomalies: The nasal septum is mildly deviated to the left. There is andra bullosa of the bases of the middle turbinates bilaterally. Ostiomeatal Complex: The right ostiomeatal complex is obliterated with thickened secretions and narrowed due to the presence of a right Nuria cell which is seen opacified. The left ostiomeatal unit is narrowed due to the presence of a small left Nuria cell. The sphenoethmoid foramina are mildly obscured Other: The visualized mastoid air cells and middle ear cavities are clear. The soft tissues of the face and orbits are within normal limits within the limitations of the study. The visualized portions of the brain are grossly unremarkable. Procedure Note Elisabeth Ferguson MD - 02/18/2018 CT SINUS WO CONTRAST*[id number] EXAMINATION: Computed tomography (CT) of the paranasal sinuses without contrast HISTORY: Chronic sinusitis, unspecified TECHNIQUE: CT of the paranasal sinuses was performed without contrast according to standard protocol. DOSE: CTDIvol: 20.20 mGy, DLP: 287.06 mGy-cm The reported CTDIvol (mGy) and DLP (mGy-cm) values are generated from scan acquisition factors based on a 32 cm body phantom or 16 cm head phantom and may underestimate or overestimate the actual patient dose based on patient size and other factors. COMPARISON: None available. FINDINGS: Post-Surgical Findings: None Sinus Chambers: There is moderate polypoid mucosal thickening in the right maxillary sinus with additional scattered bubbly secretions. There is minimal mucosal thickening in the left maxillary sinus. There are scattered opacification in the ethmoid air cells. There is moderate polypoid mucosal thickening in the right sphenoid sinus. There is fluffy secretions in the left sphenoid sinus and in the frontal sinuses. Nasal Cavities: Visualized nasal cavities are patent but there is mild secretions. Developmental Anomalies: The nasal septum is mildly deviated to the left. There is andra bullosa of the bases of the middle turbinates bilaterally. Ostiomeatal Complex: The right ostiomeatal complex is obliterated with thickened secretions and narrowed due to the presence of a right Nuria cell which is seen opacified. The left ostiomeatal unit is narrowed due to the presence of a small left Nuria cell. The sphenoethmoid foramina are mildly obscured Other: The visualized mastoid air cells and middle ear cavities are clear. The soft tissues of the face and orbits are within normal limits within the limitations of the study. The visualized portions of the brain are grossly unremarkable. IMPRESSION Paranasal sinus inflammatory changes as outlined. Polypoid mucosal thickening in the right maxillary and right sphenoid sinuses and scattered opacification in the ethmoid air cells. There is fluffy secretions within the sphenoid and frontal sinuses. Reading Radiologist: Elisabeth Ferguson MD on 02/18/2018 at 11:29 AM Evelyne Avilez MD CT ORDERABLES * (ABNORMAL) LUPUS ERYTHEMATOSUS PANEL (06/11/2016 10:32 AM CDT) VIDA Screen POSITIVE( A) NEGATIVE [facility] ([facility]) Comment: VIDA IFA is a first line screen for detecting the presence of up to approximately 150 autoantibodies in various autoimmune diseases. A positive VIDA IFA result is suggestive of autoimmune disease and reflexes to titer and pattern. Further laboratory testing may be considered if clinically indicated. Visit Physician FAQs for interpretation of all antibodies in the [place], prevalence, and association with diseases at http://education.Jell Creative.Drizly/ faq/NLF529 dsDNA Antibody <1 IU/mL [facility] ([facility]) Comment: IU/mL Interpretation < or = 4 Negative 5-9 Indeterminate > or = 10 Positive Sjogren's Antibodies (SSA) <1.0 NEG <1.0 NEG AI [facility] ([facility]) Sjogren's Antibodies (SSB) <1.0 NEG <1.0 NEG AI [facility] ([facility]) SHERRI Marsh (SM) Antibody <1.0 NEG <1.0 NEG AI [facility] ([facility]) SHERRI AUTOMOTIVE PROFESSIONAL Antibody <1.0 NEG <1.0 NEG AI [facility] ([facility] ) Chromatin Nucleosomal <1.0 NEG <1.0 NEG AI [facility] ([facility]) Complement C3 205(H) 90 - 180 mg/dL [facility] ([facility]) Complement C4 23 16 - 47 mg/dL [facility] ([facility]) Complement Total CH50 >60(H) 31 - 60 U/mL [facility] ([facility]) Comment: Test Performed at: [facility] [address] [facility] [place] [address] HEIDY VASQUEZ DO,MPH 06/11/2016 10:3 2 AM CDT 06/11/2016 10:34 AM CDT Link Roland DO LAB - SEROLO GY ORDERABLES Performing Organization Address [facility] de Phone Number [facility] ([facility]) * TAYLOR-NOBLE VIRUS CHRONIC/ACTIVE INFECTION (06/11/2016 10:32 AM CDT) Pathologist [facility] Taylor-Noble Virus Antibody IgM VCA < OR = 0.90 [facility] ([facility]) Comment: Value Interpretation ----- < or = 0.90 Negative 0.91-1.09 Equivocal > or = 1.10 Positive Taylor-Noble Virus Antibody IgG Viral Capsid Antigen < OR = 0.90 [facility] ([facility]) Comment: Value Interpretation ----- < or = 0.90 Negative 0.91-1.09 Equivocal > or = 1.10 Positive Taylor-Noble Virus Nuclear Antigen Antibody IgG < OR = 0.90 [facility] ([facility]) Comment: Value Interpretation ----- < or = 0.90 Negative 0.91-1.09 Equivocal > or = 1.10 Positive Interpretation No Taylor-Noble virus antibody detected. [facility] ([facility]) Comment: Test Performed at: [facility] [address] [address] [place] [address] HEIDY VASQUEZ DO,MPH Serum 06/11/2016 10:3 2 AM CDT 06/11/2016 10:34 AM CDT Link Roland DO LAB - SEROLO GY ORDERABLES Performing Organization Address [facility] de Phone Number [facility] ([facility]) * (ABNORMAL) PARVOVIRUS B19 IGG/IGM AB PANEL (06/11/2016 10:32 AM CDT) Parvovirus B19 Antibody IgG 5.3(H) [facility] ([facility]) Comment: REFERENCE RANGE: <0.9 INTERPRETIVE CRITERIA: <0.9 Negative 0.9 - 1.1 Equivocal >1.1 Positive IgG persists for years and provides life-long immunity. To diagnose current infection, consider Parvovirus B19 DNA, PCR. Parvovirus B19 Antibody IgM 3.2(H) [facility] ([facility]) Comment: REFERENCE RANGE: <0.9 INTERPRETIVE CRITERIA: <0.9 Negative 0.9 - 1.1 Equivocal >1.1 Positive Results from any one IgM assay should not be used as a sole determinant of a current or recent infection. Because IgM tests can yield false positive results and low levels of IgM antibody may persist for months post infection, reliance on a single test result could be misleading. If an acute infection is suspected, consider obtaining a new specimen and submit for both IgG and IgM testing in two or more weeks. To diagnose current infection, consider Parvovirus B19 DNA, PCR. REPORT COMMENT: SPECIMEN TYPE->URINE FASTING:NO Test Performed at: [facility] [address] [place] [address] Alma LUIS 06/11/2016 10:3 2 AM CDT 06/11/2016 10:34 AM CDT Link Roland DO LAB - SEROLO GY ORDERABLES [facility] ([facility]) * ASO TITER (06/11/2016 10:32 AM CDT) ASO 13 <150 IU/mL [facility] ([facility]) Comment: Test Performed at: [facility] [address] [place] [address] HEIDY VASQUEZ DO,MPH Blood specimen (specimen) BLOOD SPECIMEN / Unknown 06/11/2016 10:32 AM CDT 06/11/2016 10:34 AM CDT Link Roland LAB - Curetis TRY ORDERABLES Performing Organization Address City/[facility]/ZIP Co de Phone Number [facility] ([facility]) * THYROID PEROXIDASE ANTIBODY (06/11/2016 10:32 AM CDT) Thyroid Peroxidase TPO Antibody 1 <9 IU/mL [facility] ([facility]) Comment: Test Performed at: [facility] [address] [place] [employer] [place] [address] HEIDY VASQUEZ DO,MPH Blood specimen (specimen) BLOOD SPECIMEN / Unknown 06/11/2016 10:32 AM CDT 06/11/2016 10:34 AM CDT Link Fernandezrajesh [facility] [employer] TRY ORDERABLES Performing Organization Address [facility]/ZIP Ok de Phone Number [facility] ([facility]) * THYROGLOBULIN ANTIBODY (06/11/2016 10:32 AM CDT) Thyroglobulin Antibody <1 < or = 1 IU/mL [facility] ([facility]) Comment: Test Performed at: [employer] [facility] [address] [employer] [address] HEIDY VASQUEZ DO,MPH Blood specimen (specimen) BLOOD SPECIMEN / Unknown 06/11/2016 10:32 AM CDT 06/11/2016 10:34 AM CDT Link Roland [employer] TRY ORDERABLES Performing Organization Address [facility]/ZIP Co de Phone Number [facility] ([facility]) * HLA TYPING B27 (06/11/2016 10:32 AM CDT) HLA-B27 NEGATIVE NEGATIVE [facility] ([facility]) Comment: Test Performed at: [facility] [address] [place] [address] KATHY CRAWFORD MD PHD Blood specimen (specimen) BLOOD SPECIMEN / Unknown 06/11/2016 10:32 AM CDT 06/11/2016 10:34 AM CDT Link Bean Luan [facility] [employer] TRY ORDERABLES Performing Organization Address [facility]/ZIP Co de Phone Number [facility] ([facility]) * TAYLOR-NOBLE VIRUS AB TO EARLY AG IGG (06/11/2016 10:32 AM CDT) Pathologist [facility] Taylor-Noble Virus Early Antigen Antibody < OR = 0.90 [facility] ([facility]) Comment: Value Interpretation ----- < or = 0.90 Negative 0.91-1.09 Equivocal > or = 1.10 Positive Test Performed at: [employer] [address] HEIDY VASQUEZ DO,MPH Blood specimen (specimen) BLOOD SPECIMEN / Unknown 06/11/2016 10:32 AM CDT 06/11/2016 10:34 AM CDT Link Vikas Luan [facility] [employer] TRY ORDERABLES Performing Organization Address [facility] de Phone Number [facility] ([facility]) * DNASE ANTIBODY B (06/11/2016 10:32 AM CDT) Pathologist [facility] DNase B Antibody <95 <376 U/mL [facility] ([facility]) Comment: Test Performed at: [facility] [address] [address] TAMI BARRETO MD,FCAP Blood specimen (specimen) BLOOD SPECIMEN / Unknown 06/11/2016 10:32 AM CDT 06/11/2016 10:34 AM CDT Link Roland DO [employer] TRY ORDERABLES Performing Organization Address City/[facility]/ZIP Co de Phone Number [facility] ([facility]) * ALDOLASE (06/11/2016 10:32 AM CDT) [facility] Aldolase 4.9 3.4 - 8.6 U/L [facility] ([facility]) Comment: Test Performed at: [facility] [address] [address] [place] [address] HEIDY VASQUEZ DO,MPH Blood specimen (specimen) BLOOD SPECIMEN / Unknown 06/11/2016 10:32 AM CDT 06/11/2016 10:34 AM CDT Link Roland DO LAB - CHEMIS TRY ORDERABLES Performing Organization Address [facility] Phone Number [facility] ([facility]) * RHEUMATOID ARTHRITIS PANEL (06/11/2016 10:32 AM CDT) [facility] Rheumatoid Factor 9 <14 IU/mL [facility] ([facility]) Cyclic Citrullinated Peptide Antibody <16 UNITS [facility] ([facility]) Comment: Reference Range Negative: <20 Weak Positive: 20-39 Moderate Positive: 40-59 Strong Positive: >59 Interpretation These serologic results may be found in 10-20% of patients with polyarthritis that is [facility] ([facility]) Interpretation clinically and radiologically indistinguishable from RA. [facility] ([facility]) Comment: Test Performed at: [facility] [id number] HEIDY VASQUEZ DO,MPH 06/11/2016 10:3 2 AM CDT 06/11/2016 10:34 AM CDT Link Roland DO LAB - SEROLO GY ORDERABLES Performing Organization Address [facility] Phone Number [facility]) * LDH BLOOD (06/11/2016 10:32 AM CDT) [facility] LDH Total 179 110 - 250 U/L [facility] ([facility]) Comment: Test Performed at: [place] [id number] HEIDY VASQUEZ DO,MPH Blood specimen (specimen) BLOOD SPECIMEN / Unknown 06/11/2016 10:32 AM CDT 06/11/2016 10:34 AM CDT Link Roland DO LAB - CHEMIS TRY ORDERABLES Performing Organization Address [facility] Phone Number [facility] ([facility]) * CK BLOOD (06/11/2016 10:32 AM CDT) [facility] CK Total 61 <143 U/L [facility] ([facility]) Comment: Test Performed at: [employer] [facility] [address] [place] [address] HEIDY VASQUEZ DO,MPH Blood specimen (specimen) BLOOD SPECIMEN / Unknown 06/11/2016 10:32 AM CDT 06/11/2016 10:34 AM CDT Link Roland DO LAB - CHEMIS TRY ORDERABLES [facility] ([facility]) * LAB RESULTS ORDER (03/15/2014 2:13 PM LOW PRESSURE BOILER TENDER) Narrative 03/15/2014 2:13 PM LOW PRESSURE BOILER TENDER Ordered by an unspecified provider. Scanned Document LAB - THERAPEUTIC DR ROBLERO MONITORING ORDERABLES * XR ABD OBSTR SERIES (02/20/2014 12:05 PM LOW PRESSURE BOILER TENDER) Anatomical Region Laterality Modality Abdomen Radiographic Phyllis ging 02/20/2014 12:0 8 PM LOW PRESSURE BOILER TENDER Impressions 02/20/2014 12:09 PM LOW PRESSURE BOILER TENDER Moderate to large amount of stool in the colon. No evidence of intestinal obstruction. Narrative 02/20/2014 12:09 PM LOW PRESSURE BOILER TENDER Obstructive series performed February 20, 2014. History: Right lower quadrant pain. AP supine and upright views of the abdomen and pelvis were obtained. There is a moderate to large amount of stool throughout the colon. There is no evidence of intestinal obstruction. No heterotopic soft tissue calcifications or abnormal soft tissue mass densities are seen. The lung bases are clear. The visualized bony structures are intact. Procedure Note Chelita Mills MD - 02/20/2014 Obstructive series performed February 20, 2014. History: Right lower quadrant pain. AP supine and upright views of the abdomen and pelvis were obtained. There is a moderate to large amount of stool throughout the colon. There is no evidence of intestinal obstruction. No heterotopic soft tissue calcifications or abnormal soft tissue mass densities are seen. The lung bases are clear. The visualized bony structures are intact. IMPRESSION Moderate to large amount of stool in the colon. No evidence of intestinal obstruction. Vikas Pressley MD DIAGNOSTIC IMAGING O RDERABLES * US ABD FOR APPENDICITIS (02/20/2014 12:00 PM LOW PRESSURE BOILER TENDER) Anatomical Region Laterality Modality Abdomen Ultrasound 02/20/2014 12:0 3 PM LOW PRESSURE BOILER TENDER Impressions 02/20/2014 12:07 PM LOW PRESSURE BOILER TENDER No sonographic evidence of appendicitis. These findings were discussed with Dr. Robles by Dr. Trent at 12:05 PM on 02/20/2014. Narrative 02/20/2014 12:07 PM LOW PRESSURE BOILER TENDER Exam: Abdominal sonogram limited History: 8-year-old female with abdominal pain Comparison: None Findings: No blind-ending distended tubular structure is seen on graded compression ultrasound of the right lower quadrant. No free fluid is seen in the pelvis. Procedure Note Makayla Trent MD - 02/20/2014 Exam: Abdominal sonogram limited History: 8-year-old female with abdominal pain Comparison: None Findings: No blind-ending distended tubular structure is seen on graded compression ultrasound of the right lower quadrant. No free fluid is seen in the pelvis. IMPRESSION No sonographic evidence of appendicitis. These findings were discussed with Dr. Robles by Dr. Trent at 12:05 PM on 02/20/2014. Vikas Pressley MD US ORDERABLES * XR CHEST PA AND LATERAL(most commonly ordered) (03/28/2013 12:35 PM LOW PRESSURE BOILER TENDER) Anatomical Region Laterality Modality Chest Radiographic Phyllis ging 03/28/2013 12:4 9 PM LOW PRESSURE BOILER TENDER Impressions 03/28/2013 12:49 PM LOW PRESSURE BOILER TENDER No acute disease Narrative 03/28/2013 12:49 PM LOW PRESSURE BOILER TENDER Chest, PA and lateral March 282013 Lungs, heart, and mediastinum are normal. There is no infiltrate, effusion, or pneumothorax. Procedure Note Jake Betts MD - 03/28/2013 Chest, PA and lateral March 282013 Lungs, heart, and mediastinum are normal. There is no infiltrate, effusion, or pneumothorax. IMPRESSION No acute disease Argenis Ge MD DIAGNOSTIC IMAGING ORDERABLES * URINALYSIS ROUTINE AUTO (03/28/2013 12:31 PM LOW PRESSURE BOILER TENDER) Color UA Yellow Straw, Yellow, Dark Yellow 03/28/2013 12:48 PM [facility] Clarity UA Clear 03/28/2013 12:48 PM [facility] Specific [place] UA <=1.005 1.005 - 1.030 03/28/2013 12:48 PM [facility] pH UA 6.5 5.0 - 8.0 pH 03/28/2013 12:48 PM [facility] Protein UA Negative Negative 03/28/2013 12:48 PM [facility] Blood UA Negative Negative 03/28/2013 12:48 PM [facility] Leukocyte UA Negative Negative 03/28/2013 12:48 PM [facility] Nitrite UA Negative Negative 03/28/2013 12:48 PM [facility] Glucose UA Negative Negative 03/28/2013 12:48 PM [facility] Ketone UA Negative Negative 03/28/2013 12:48 PM [facility] Bilirubin UA Negative Negative 03/28/2013 12:48 PM [facility] Urobilinogen UA 0.2 0.1 - 1.0 EU/dL 03/28/2013 12:48 PM [facility] Urine Microscopy Urine microscopy to follow 03/28/2013 12:48 PM [facility] Urine URINE SPECIMEN OBTAINED BY CLEAN CATCH PROCEDURE / Unknown 03/28/2013 12:31 PM [facility] 03/28/2013 12:37 PM [facility] Argenis Ge MD LAB - URINALYSIS O RDERABLES Performing Organization Address City/State/[facility] Co de Phone Number [facility] [address] [place] [address] * URINALYSIS MICROSCOPIC ONLY (03/28/2013 12:31 PM [facility]) RBC UA 0-2 0-2, 2-5 # /hpf 03/28/2013 12:58 PM [facility] WBC UA 0-2 0-2, 2-5 # /hpf 03/28/2013 12:58 PM [facility] Bacteria UA Trace None Seen, Trace 03/28/2013 12:58 PM [facility] Epithelial Cell UA 0-2 0-2, 2-5 03/28/2013 12:58 PM [facility] Urine URINE SPECIMEN OBTAINED BY CLEAN CATCH PROCEDURE / Unknown 03/28/2013 12:31 PM LOW PRESSURE BOILER TENDER 03/28/2013 12:37 PM LOW PRESSURE BOILER TENDER Argenis Ge MD LAB - URINALYSIS O RDERABLES [facility] [address] [place] [address] Care Teams Consulting Software Engineer Relationship Specialty Start Date End Date Evelyne Avilez MD [address] [place] [id number] PCP - General 02/16/18
--- OUTSIDE RECORDS SUMMARY | 2024-05-10 09:24 | XMS_ITS | Encounter Summary ---
Author Organization [facility] Address [address] [place] [address] Care Team Providers Care Colorer Hides And Skins Name Role Phone Evelyne Avilez MD Primary Care Provider Encounter Details Date Type Department Care Team (Late st Contact Info) Description 08/05/2018 Telephone [facility] - GI [address] [place] [address] Joana Nieto, PACKAGE DESIGNER-DISTRICT DIRECTOR [address] [place] [address] Social History Tobacco Use Types Packs/Day Years Used Date Smoking Tobacco: Passive Smo ke Exposure - Never Smoker Smokeless Tobacco: Never Alcohol Use Standard Drinks/Week Comments No 0 (1 standard drink = 0.6 oz pur e alcohol) Sex and Gender Information Value Date Recorded Sex Assigned at Not on file Gender Identity Not on file Sexual Orientation Not on file documented as of this encounter Functional Status Functional Status Response Date of Assess ment Is person deaf or have serious hearing difficult y? No 08/03/2018 Is person blind or have serious difficulty seein g? No 08/03/2018 Does person have serious dif ficulty walking/climbing stairs? No 08/03/2018 Does person have difficulty dressing/bathing? No 08/03/2018 Does person have difficulty doing errands alone? No 08/03/2018 Cognitive Status Response Date of Assessm ent Does person have difficulty concentrating/remembering/making decisions? No 08/03/2018 documented as of this encounter Miscellaneous Notes * Telephone Encounter - Grace Wiley RN - 09/01/2018 9:50 AM CDT Should be scheduled for EGD with colonoscopy (per notes, no dilation). * Telephone Encounter - Suly Grimm - 09/01/2018 9:34 AM CDT [facility] in the procedure room left a message wanting to verify that the patient needs an EGD w/dilation and not an EGD. * Telephone Encounter - Alda Menon RN - 08/05/2018 3:55 PM CDT New prep letter mailed home. * Telephone Encounter - Veronica Isaacs - 08/05/2018 3:43 PM CDT Mom called to cancel procedure on 08/08, rescheduled EGD w/dilation and Colon to 09/05/18 @ [address] Iniguez. email prep instructions to [email or web address] documented in this encounter Plan of Treatment Not on file documented as of this encounter Visit Diagnoses Not on filedocumented in this encounter Care Teams Colorer Hides And Skins Relationship Specialty Start Date End Date Evelyne Avilez MD [address] [place] [id number] PCP - General 02/16/18 documented as of this encounter
--- OUTSIDE RECORDS SUMMARY | 2024-05-10 09:24 | XMS_ITS | Referral Summary ---
Author Organization [facility] Address [address] [facility] [place] [address] Care Team Providers Care Communications Program Manager Name Role Phone Evelyne Avilez MD Primary Care Provider [phone] Source Comments [facility],non-owned Affiliates and Associated Physician Practices is amultiple site organization consisting of ambulatory clinics and hospital sitesin [place], [place], [place] and [place]. This disclosure is being madepursuant to the Care Everywhere program and may not contain all information available regarding this patient. Last updated 17.[facility] Allergies Active Allergy Reactions Criticality Noted Date [...] fluticasone propionate (FLONASE) 50 MCG/ACT nasal spray [place] 2 sprays into each nostril once daily [...] is not great. EBV PCR would not jacket changer so not sending at this time. Pt [...] I&Os Diarrhea 06/28/2018 07/26/2018 Rash 02/24/2018 03/24/2018 Social [...] C DT Body Mass Index - - Functional Status Functional Status Response Date of [...] person have difficulty concentrating/remembering/making decisions? No 08/03/2018 Plan of Treatment Not on file Advance Directives * Full Code (Latest Code Status on File) Date Activated Date Inactivated Comments 08/02/2018 2:04 AM 08/03/2018 4:29 PM Care Teams Communications Program Manager Relationship Specialty Start Date End Date Evelyne Avilez MD [address] [place] [address] PCP - General 02/16/18
[2024-05-10 09:29] LABS: Basophils Percent Auto 0.3 % (0.2-1.2); Hematocrit 43.9 % (37.0-47.0); Hemoglobin 14.9 g/dL (12.0-15.0); Immature Granulocyte Absolute 0.02 K/mm3 (0.00-0.031); Immature Granulocyte Percent A 0.3 % (0-0.5); Lymphocytes Absolute Auto 0.32 K/mm3 (0.9-3.2); Mean Corpuscular HGB Conc 33.9 g/dl (32-36); Mean Corpuscular Hemoglobin 31.6 pg (26-34); Mean Platelet Volume 9.8 fl (7.4-10.4); Monocytes Absolute Auto 0.3 K/mm3 (0.1-0.6); Monocytes Percent Auto 4.1 % (2.6-8.5); Neutrophils Absolute Auto 5.8 K/mm3 (1.3-6.7); Neutrophils Percent Auto 90.3 % (45.5-73.1); Platelet Count Result 294 k/mm3 (150-375); Red Blood Count 4.72 M/mm3 (4.2-5.4); Red Cell Distribution Width 11.9 % (11.5-14.5); White Blood Count 6.4 K/mm3 (4.5-10.0)
[2024-05-10 09:39] LABS: Lactic Acid Reflex 1.2 mmol/L (0.7-2.0)
[2024-05-10 09:40] LABS: Alanine Aminotransferase 32 U/L (6-35); Albumin Level 4.6 g/dL (3.7-5.6); Alkaline Phosphatase 46 U/L (45-116); Anion Gap 14 mmol/L (4-12); Aspartate Amino Transferase 29 U/L (14-36); Bilirubin,Total 0.9 mg/dL (0.2-1.3); Blood Urea Nitrogen 13 mg/dL (8-21); Calcium 8.9 mg/dL (8.9-10.7); Carbon Dioxide 21 mmol/L (22-30); Chloride 100 mmol/L (98-107); Estimated CRCL calculation 117 ml/min; Estimated Glomerular Filt Rate > 60; Glucose 107 mg/dL (65-110); Lipase 13 U/L (23-300); Potassium 3.5 mmol/L (3.4-5.0); Sodium 135 mmol/L (134-143)
[2024-05-10 09:49] LABS: BEDSIDEPREGUCG Negative (Negative)
[2024-05-10] MEDS: SODIUM CHLORIDE 0.9% IV 1,000 ML 999 ML IV CONT ×2 (10:01→10:25)
[2024-05-10 10:02] VITALS: BP 108/84; PULSE 113; RESP 16; O2SAT 98
[2024-05-10 10:02] LABS: Add Urine Microscopic? YES; Appearance Urine Clear (Clear); Bacteria Urine 2+ /hpf; Bilirubin Urine Negative (Negative); Blood Urine Negative (Negative); Color Urine Yellow (Yellow); Glucose Urine UA Negative (Negative); Ketones Urine 3+ mg/dL (Negative); Leukocyte Esterase Ur Negative LEU/UL (Negative); Nitrate Urine Negative (Negative); Non Pathogenic Casts 0-2; Protein Urine Trace mg/dL (Negative); RBC Urine 0-2 /hpf (0-2); Specific Grav Ur 1.037 (1.001-1.035); Squamous Epithelial Cell Urine Moderate /hpf (Few); Urobilinogen Urine 0.2 mg/dL (<2.0); WBC Urine 0-5 /hpf (0-3); pH Urine 5.5 (5.0-9.0)
[2024-05-10 10:05] LABS: Influenza A QL RT-PCR Negative (Negative); Influenza B QL RT-PCR Negative (Negative); RSV RNA, RT-PCR Negative (Negative); SARS-CoV-2 RNA PCR Negative (Negative)
--- OUTSIDE RECORDS SUMMARY | 2024-05-10 10:19 | XMS_ITS | Clinical Summary ---
Author Organization [facility] Address [address] [place] [address] Care Team Providers Care Manager [address] Name Role Phone Evelyne Avilez MD Primary Care Provider [phone] Source Comments [facility],non-owned Affiliates and Associated Physician Practices is amultiple site organization consisting of ambulatory clinics and hospital sitesin [place], [place], [place] and [place]. This disclosure is being madepursuant to the Care Everywhere program and may not contain all information available regarding this patient. Last updated 17.[facility] Allergies Active Allergy Reactions Criticality [...] fluticasone propionate (FLONASE) 50 MCG/ACT nasal spray [place] 2 sprays into each nostril once daily [...] is not great. EBV PCR would not slubber frame changer so not sending at this time. [...] 2:04 AM 08/03/2018 4:[address] Relationship Specialty Start Date End Date Evelyne Avilez MD [address] [address] PCP - General 02/16/18
--- OUTSIDE RECORDS SUMMARY | 2024-05-10 10:20 | XMS_ITS | Patient Health Summary ---
Author Organization [facility] Address [address] [place] [address] Care Team Providers Care Climate Change Risk Assessor Name Role Phone Evelyne Avilez MD Primary Care Provider [phone] Note from [facility],non-owned Affiliates and Associated Physician Practices is amultiple site organization consisting of ambulatory clinics and hospital sitesin [place], [place], [place] and [place]. This disclosure is being madepursuant to the Care Everywhere program and may not contain all information available regarding this patient. Last updated 17.[facility] Allergies * Penicillins(Rash) -Medium Criticality Medications * Be aware that medications may not be up to date on this document. Alwaysverify current medications with the patient. * DULoxetine (CYMBALTA) 60 MG capsule(Started 06/08/2018) 60 mg once daily * diphenhydrAMINE (BENADRYL) 25 MG tablet Take 50 mg by mouth at bedtime * fluticasone propionate (FLONASE) 50 MCG/ACT nasal spray [place] 2 sprays into each nostril once daily [...] for Arthralgia, unspecified joint, VIDA positive * NETWORK SUPPORT TECHNICIAN ANTIBODY(Performed 03/03/2018) Performed for Arthralgia, unspecified joint, [...] 25-HYDROXY(Performed 03/03/2018) Performed for Arthralgia, unspecified joint, VIAD positive * TSH(Performed 03/03/2018) Performed for Arthralgia, [...] Yellow Straw, Yellow 09/05/2021 2:44 AM CDT [facility] Clarity UA Turbid(A) Clear 09/05/2021 2:44 AM CDT [facility] Specific [place] UA 1.016 1.005 - 1.030 09/05/2021 2:44 AM [facility] pH UA 7.0 5.0 - 8.0 pH 09/05/2021 2:44 AM [facility] Protein UA Negative Negative 09/05/2021 2:44 AM [facility] Glucose UA Negative Negative 09/05/2021 2:44 AM [facility] Ketone UA Trace(A) Negative 09/05/2021 2:44 AM [facility] Bilirubin UA Negative Negative 09/05/2021 2:44 AM [facility] Blood UA 1+(A) Negative 09/05/2021 2:44 AM [facility] Nitrite UA Positive(A) Negative 09/05/2021 2:44 AM [facility] Leukocyte Esterase 1+(A) Negative 09/05/2021 2:44 AM [facility] Urobilinogen UA 2.0(A) Negative mg/dL 09/05/2021 2:44 AM [facility] RBC UA 0-2 None Seen, 0-2, 3-5 /HPF 09/05/2021 2:44 AM [facility] WBC UA 21-50(A) None Seen, 0-5 /HPF 09/05/2021 2:44 AM [facility] Bacteria UA 1+(A) None /HPF 09/05/2021 2:44 AM [facility] Squamous Epithelial Cells UA 0-2 None Seen, 0-2, 3-5 /HPF 09/05/2021 2:44 AM [facility] Mucus UA 1+ /LPF 09/05/2021 2:44 AM [facility] Amorphous Crystals Many(A) None /HPF 09/05/2021 2:44 AM [facility] Urine URINE SPECIMEN OBTAINED BY CLEAN CATCH PROCEDURE / Unknown Collection / Unknown 09/05/2021 2:08 AM T 09/05/2021 2:16 AM [facility] - 09/05/2021 2:44 AM T Sharda Fatima MD LAB - URINALYSIS ORD ERABLES [address] [address], [facility] [phone] * (ABNORMAL) URINE DRUG SCREEN IMMUNOASSAY (09/05/2021 2:08 AM T) [facility] Amphetamines Screen Urine Negative Negative : < 1000 ng/mL 09/05/2021 2:35 AM [facility] Barbiturates Screen Urine Negative Negative : < 200 ng/mL 09/05/2021 2:35 AM [facility] Benzodiazepine Screen Urine Negative Negative : < 200 ng/mL 09/05/2021 2:35 AM [facility] Opiates Urine Positive(A) Negative : < 300 ng/mL 09/05/2021 2:35 AM [facility] Comment:Positive urine opiat e screening results should be confirmed by another generally accepted non-immunological method such as gas chromatography or mass spectrometry. Cocaine Metabolites Urine Negative Negative : < 300 ng/mL 09/05/2021 2:35 AM [facility] Phencyclidine Screen Urine Negative Negative : < 25 ng/ml 09/05/2021 2:35 AM [facility] Cannabinoids Screen Urine Positive(A) Negative : <50 ng/mL 09/05/2021 2:35 AM [facility] Comment:Positive urine canna binoids (THC) screening results should be confirmed by another generally accepted non-immunological method such as gas chromatography or mass spectrometry. Methadone Screen Urine Negative Negative : < 300 ng/mL 09/05/2021 2:35 AM [facility] Fentanyl Screen Urine Negative Negative : <1.0 ng/mL 09/05/2021 2:35 AM [facility] Urine URINE / Unknown Collection / Unknown 09/05/2021 2:08 AM CDT 09/05/2021 2:16 AM [facility] - 09/05/2021 2:35 AM [facility] The Urine Toxicology Screening Panel does not screen for Propoxyphene, Meprobamate, Carisoprodol, Trazodone, glqq-hkw-bqnzdcc medications and/or volatiles (Acetone, Isopropanol, Methanol or Ethylene Glycol). Ethanol, Salicylate, Acetaminophen, Tricyclic Antidepressants and several therapeutic drugs may be individually assayed in serum or plasma specimen. Toxicology testing by the [facility] is an aid to medical diagnosis and treatment of patients. No documented chain of custody was maintained. Results are intended to be used for clinical purposes only. Sharda Fatima MD LAB - URINE CHEMISTR Y ORDERABLES Performing Organization Address City/State/[facility] Co de Phone Number [id number] [place] [address], [facility] [phone] * XR LUMBAR SPINE 2 OR 3VW [...] Yane Goode on 09/05/2021 at 8:19 AM Narrative 09/05/2021 [...] TYPE VERIFICATION (09/04/2021 11:59 PM CDT) Pathologist [facility] ABO Rh A POS 09/05/2021 12:54 AM CDT [facility] Blood Bank BLOOD SPECIMEN / Unknown Venipuncture / Unknown 09/04/2021 11:59 PM CDT 09/05/2021 12:22 AM CDT Irasema Guthrie MD LAB - BLOOD BANK ORD ERABLES [facility] [address] [place] [address], [facility] [phone] * (ABNORMAL) TEG 6 GLOBAL HEMOSTASIS W/ LYSIS (09/04/2021 11:47 PM CDT) Citrated Kaolin R (Reaction Time) 4.5(L) 4.6 - 9.1 min 09/05/2021 1:04 AM CDT [facility] Citrated Kaolin LY30 (Lysis) 1.0 0.0 - 2.6 % 09/05/2021 1:04 AM CDT [facility] Citrated RapidTEG MA (Max Amplitude) 63.5 52.0 - 70.0 mm 09/05/2021 1:04 AM CDT [facility] Citrated Functional Fibrinogen MA (Max Amplitude) 21.8 15.0 - 32.0 mm 09/05/2021 1:04 AM CDT [facility] Blood BLOOD SPECIMEN / Unknown Venipuncture / Unknown 09/04/2021 11:47 PM CDT 09/04/2021 11:53 PM CDT Sharda Fatima MD LAB - HEMATOLOGY ORD ERABLES Performing Organization Address [facility]/ZIP Co de Phone Number [address] [address], [place] [phone] * PTT [facility] (09/04/2021 11:47 PM CDT) APTT 26.3 23.0 - 38.4 Seconds 09/05/2021 12:08 AM [facility] Comment:Suggested therapeuti c range for full dose I.V. unfractionated heparin therapy for venous thromboembolism is 71 to 109 seconds. Blood BLOOD SPECIMEN / Unknown Venipuncture / Unknown 09/04/2021 11:47 PM CDT 09/04/2021 11:58 PM CDT Narrative [facility] - 09/05/2021 12:08 AM CDT Reference intervals for this test are valid for adults at [facility]. Pediatric reference intervals may be slightly different. Sharda Fatima MD LAB - COAGULATION OR DERABLES Performing Organization Address City/[facility]/ZIP Co de Phone Number [address] [address], [place] [phone] * (ABNORMAL) PT-INR [facility] (09/04/2021 11:47 PM CDT) PT 15.3(H) 12.1 - 14.8 Seconds 09/05/2021 12:07 AM CDT [facility] INR 1.2 See Comment 09/05/2021 12:07 AM CDT [facility] Comment:The suggested therap eutic range for standard coumadin (warfarin) therapy is an INR of 2.0-3.0. For high-risk patients (Mechanical Mitral Valve Prosthesis, etc.), the suggested prophylactic therapeutic range is an INR of 2.5-3.5. Blood BLOOD SPECIMEN / Unknown Venipuncture / Unknown 09/04/2021 11:47 PM CDT 09/04/2021 11:58 PM CDT Narrative [facility] - 09/05/2021 12:07 AM CDT Reference intervals for this test are valid for adults at [facility]. Pediatric reference intervals may be slightly different. Sharda Fatima MD LAB - COAGULATION OR DERABLES Performing Organization Address City/[facility]/ZIP Co de Phone Number [address] [address], [facility] [phone] * TYPE + SCREEN PANEL (09/04/2021 11:47 PM CDT) Antibody Screen NEG 12:33 AM CDT [facility] ABO Rh A POS 09/05/2021 12:33 AM CDT [facility] Blood Bank BLOOD SPECIMEN / Unknown Venipuncture / Unknown 09/04/2021 11:47 PM CDT 09/04/2021 11:56 PM CDT Sharda Fatima MD LAB - BLOOD BANK ORD ERABLES Performing Organization Address City/[facility]/ZIP Co de Phone Number [facility] [address] [place] [address], [employer] [phone] * (ABNORMAL) DIFFERENTIAL MANUAL (09/04/2021 11:47 PM CDT) WBC (corrected for NRBC) 14.8 10 3/uL 09/05/2021 4:50 AM CDT [facility] Total Cell Count 100 09/05/2021 4:50 AM CDT [facility] Neutrophils Absolute Manual 11.25(H) 1.40 - 8.60 10 3/uL 09/05/2021 4:50 AM [facility] Comment:(BANDS+SEGS) x WBC = NEUT # (ANC) Lymphocyte Absolute Manual 2.52 0.60 - 5.90 10 3/uL 09/05/2021 4:50 AM T [facility] Monocytes Absolute Manual 0.59 0.18 - 1.43 10 3/uL 09/05/2021 4:50 AM [facility] Eosinophils Absolute Manual 0.15 0.00 - 0.88 10 3/uL 09/05/2021 4:50 AM [facility] Neutrophil % Manual 76 31 - 78 % 09/05/2021 4:50 AM [facility] Lymphocyte % Manual 17 13 - 54 % 09/05/2021 4:50 AM [facility] Monocytes % Manual 4 4 - 13 % 09/05/2021 4:50 AM [facility] Eosinophils % Manual 1 0 - 8 % 09/05/2021 4:50 AM [facility] Atypical Lymphocyte % Manual 2(H) 0 % 09/05/2021 4:50 AM [facility] Platelet Estimate Adequate Adequate 09/05/2021 4:50 AM [facility] RBC Morphology Normal 09/05/2021 4:50 AM [facility] Blood BLOOD SPECIMEN / Unknown Venipuncture / Unknown 09/04/2021 11:47 PM CDT 09/04/2021 11:55 PM CDT Sharda Fatima MD LAB - HEMATOLOGY ORD ERABLES [facility] [address] [place] [address], [facility] [phone] * (ABNORMAL) CBC W AUTO DIFFERENTIAL (09/04/2021 11:47 PM CDT) Only the most recent of4 resultswithin the time period is included. WBC 14.8(H) 4.5 - 11.0 10 3/uL 09/05/2021 12:24 AM [facility] RBC 4.15 4.10 - 5.10 10 6/uL 09/05/2021 12:24 AM [facility] Hemoglobin 12.9 12.0 - 16.0 g/dL 09/05/2021 12:24 AM [facility] Hematocrit 37.7 36.0 - 47.0 % 09/05/2021 12:24 AM [facility] MCV 90.8 78.0 - 98.0 fL 09/05/2021 12:24 AM [facility] MCH 31.1 25.0 - 35.0 pg 09/05/2021 12:24 AM [facility] MCHC 34.2 31.0 - 37.0 g/dL 09/05/2021 12:24 AM [facility] Platelet Count 381 100 - 400 10 3/uL 09/05/2021 12:24 AM [facility] RDW-SD 40.4 36.0 - 50.0 fL 09/05/2021 12:24 AM [facility] RDW-CV 12.1 11.5 - 14.0 % 09/05/2021 12:24 AM [facility] MPV 9.9(H) 6.0 - 9.5 fL 09/05/2021 12:24 AM [facility] nRBC Absolute 0.00 0 10 3/uL 09/05/2021 12:24 AM [facility] nRBC Auto 0.0 0 /100 WBC 09/05/2021 12:24 AM [facility] Blood BLOOD SPECIMEN / Unknown Venipuncture / Unknown 09/04/2021 11:47 PM CDT 09/04/2021 11:55 PM CDT Sharda Fatima MD LAB - HEMATOLOGY ORD ERABLES [facility] [address] [place] [address], [facility] [phone] * (ABNORMAL) COMPREHENSIVE METABOLIC PANEL (09/04/2021 11:47 PM CDT) Only the most recent of4 resultswithin the time period is included. BUN 11 5 - 19 mg/dL 09/05/2021 12:21 AM [facility] Creatinine 0.69 0.56 - 0.96 mg/dL 09/05/2021 12:21 AM [facility] Sodium 135(L) 136 - 145 mmol/L 09/05/2021 12:21 AM [facility] Potassium 3.3(L) 3.5 - 5.1 mmol/L 09/05/2021 12:21 AM [facility] Chloride 107 98 - 107 mmol/L 09/05/2021 12:21 AM [facility] CO2 20 20 - 28 mmol/L 09/05/2021 12:21 AM [facility] Glucose 143(H) 70 - 115 mg/dL 09/05/2021 12:21 AM [facility] Calcium 9.0 8.4 - 10.2 mg/dL 09/05/2021 12:21 AM [facility] Protein Total 7.3 6.0 - 8.3 g/dL 09/05/2021 12:21 AM [facility] Albumin 4.1 3.4 - 5.0 g/dL 09/05/2021 12:21 AM [facility] Bilirubin Total 0.3 0.3 - 1.2 mg/dL 09/05/2021 12:21 AM [facility] Alkaline Phosphatase 82(L) 100 - 390 U/L 09/05/2021 12:21 AM [facility] ALT 19 5 - 55 U/L 09/05/2021 12:21 AM [facility] AST 24 3 - 35 U/L 09/05/2021 12:21 AM [facility] Anion Gap 11 8 - 18 09/05/2021 12:21 AM [facility] BUN/Creatinine Ratio 16 7 - 23 09/05/2021 12:21 AM [facility] Osmolality Calculated 282 270 - 300 mOsm/kg 09/05/2021 12:21 AM [facility] Blood BLOOD SPECIMEN / Unknown Venipuncture / Unknown 09/04/2021 11:47 PM CDT 09/04/2021 11:55 PM CDT Sharda Fatima MD LAB - CHEMISTRY ALLY BERMUDEZ Performing Organization Address [facility]/ZIP Co de Phone Number [address] [address], [facility] [phone] * LIPASE BLOOD (09/04/2021 11:47 PM CDT) Lipase 15 8 - 78 U/L 09/05/2021 12:21 AM CDT [facility] Blood BLOOD SPECIMEN / Unknown Venipuncture / Unknown 09/04/2021 11:47 PM CDT 09/04/2021 11:55 PM CDT Sharda Fatima MD LAB - CHEMISTRY ALLY BERMUDEZ Performing Organization Address [facility] Co de Phone Number [address] [address], [facility] [phone] * ALCOHOL ETHYL BLOOD (09/04/2021 11:47 PM CDT) Ethanol (mg/dL) <10 <10 mg/dL 12:21 AM CDT [facility] Ethanol Calculated (g/dL) <0.010 <=0.010 g/dL 09/05/2021 12:21 AM CDT [facility] Blood BLOOD SPECIMEN / Unknown Venipuncture / Unknown 09/04/2021 11:47 PM CDT 09/04/2021 11:55 PM CDT Narrative [facility] - 09/05/2021 12:21 AM CDT Ethanol Interp <10: None Detected. Depression of TARGETING ACQUISITION OFFICER: >100 mg/dl Potentially Critical: >250 mg/dl Potentially [...] Fatima MD LAB - CHEMISTRY ALLY BERMUDEZ [facility] [address] [place] [address], [facility] [phone] * HELICOBACTER PYLORI UREASE (STL) (09/05/2018 1:53 PM CDT) Helicobacter pylori Urease Initial Negative Negative 09/06/2018 4:03 PM CDT [facility] Helicobacter pylori Urease Final Negative Negative 09/06/2018 4:03 PM CDT [facility] Comment:This is an appended report. These results have been appended to a previously preliminary verified report. Microbiology GASTRIC BIOPSY SPECIMEN / Unknown Collection / Unknown 09/05/2018 1:53 PM CDT 09/05/2018 2:07 PM CDT Joana Nieto DATA ACQUISITION TECHNICIAN-SHIP FITTER LAB - CECILIA ROBIOLOGY ORDERABLES Performing Organization Address [facility]/ZIP Co de Phone Number [facility] [address] [place] [address] * GROSS + MICRO EXAM (STL) (09/05/2018 1:48 PM CDT) Case Report Surgical Pathology Report Case: [id number] Authorizing Provider: Nichole Iniguez MD Collected: 09/05/2018 [...] - Rectosigmoid Biopsy 09/07/2018 11:49 PM CDT [facility] Final Diagnosis A) Stomach, Biopsy: [...] - No pathologic diagnosis. 09/07/2018 11:49 PM [facility] Clinical History The patient is a 13-year-old girl with abdominal pain who underwent upper endoscopy and colonoscopy. The findings were erosions in the antrum and gastritis. 09/07/2018 11:49 PM [facility] Gross Description The specimens are [...] toto as I1. (CT/jam) 09/07/2018 11:49 PM [facility] Microscopic Description A) 3 H&E; [...] large intestinal mucosa. (DSB) 09/07/2018 11:49 PM [facility] Disclaimer The performance characteristics of all immunohistochemical and indirect immunofluorescence stains (if any) cited in this report were determined by the [facility] of [facility] in compliance with Clinical Laboratory Improvement Amendments of 1988 (CLIA'88) regulations. Some of these tests rely on the use of analyte-specific reagents and are subject to specific labeling requirements by the U.S. Food and Drug Administration (FDA). Such tests were developed by the [facility] of [facility] and have not been cleared or approved by the FDA. The FDA has determined that such clearance or approval is not necessary. These tests are used for clinical purposes and should not be regarded as investigational or for research. This case has been personally reviewed and interpreted by the attending (teaching) pathologist. 09/07/2018 11:49 PM [facility] Embedded Images 09/07/2018 11:49 PM [facility] Pathology/Cytology ESOPHAGEAL BIOPSY SPECIMEN / [...] Iniguez MD LAB - PATHOLOGY/CYTO LOGY ORDERABLES [facility] [address] [place] [address] * HCG URINE QUALITATIVE - POCT (IP) INTERFACED (09/05/2018 1:31 PM CDT) HCG Qual Urine Negative Negative 09/05/2018 1:28 PM CDT [facility] Urine URINE / Unknown 09/05/2018 1 :31 PM CDT 09/05/2018 1:28 PM CDT Nichole Iniguez MD LAB - POINT OF CARE ORDERABLES [facility] [address] [place] [address] * HCG URINE QUAL POCT NOTIFICATION (09/05/2018 12:30 PM CDT) Comment Notification Label Only - See Separate Report 09/05/2018 2:00 PM CDT [facility] Urine URINE / Unknown 09/05/2018 1 2:30 PM CDT 09/05/2018 12:30 PM CDT Nichole Iniguez MD LAB - URINALYSIS ORD ERABLES [facility] [address] [place] [address] * ENDOSCOPY, COLON, DIAGNOSTIC (09/05/2018 11:59 AM CDT) Report Endoscopy POC _ Patient Name: Jacki Ramos Date of : 2005 Admit Type: Outpatient Age: 13 Gender: Female Race: White Attending MD: Nichole Iniguez , Order #: [id number] _ Procedure: Colonoscopy Indications: Generalized abdominal pain [...] 6 weeks. Procedure Code(s): --- Professional --- 68570, Colonoscopy, flexible; with biopsy, single or multiple --- Technical --- 76353, Colonoscopy, flexible; with biopsy, single or multiple Diagnosis Code(s): --- Professional --- R10.84, Generalized abdominal pain --- Technical --- R10.84, Generalized abdominal pain CPT copyright 2017 [employer]. All rights reserved. The codes documented in this report are preliminary and upon stock or delivery clerk review may be revised to meet current compliance requirements. Dr. Nichole Iniguez MD Nichole Iniguez, 09/05/2018 2:59:16 PM Number of Addenda: 0 Note Initiated On: 08/31/2018 11:59 AM Procedure Date: 09/05/2018 11:59:00 AM This report has been signed electronically. [facility] 09/05/2018 11:5 9 AM CDT Joana Nieto DATA ACQUISITION TECHNICIAN-SHIP FITTER GI PROCED URE ORDERABLES [facility] [address] [place] [address] * EGD (09/05/2018 11:59 AM CDT) Report Endoscopy POC _ Patient Name: Jacki Ramos Date of : 2005 Admit Type: Outpatient Age: 13 Gender: Female Race: White Attending MD: Nichole Iniguez , Order #: [id number] _ Procedure: Upper GI endoscopy Indications: Generalized [...] 6 weeks. Procedure Code(s): --- Professional --- 86098, Esophagogastrodu odenoscopy, flexible, transoral; with biopsy, single or multiple --- Technical --- 59004, Esophagogastrodu odenoscopy, flexible, transoral; with biopsy, single or multiple Diagnosis Code(s): --- Professional --- R10.84, Generalized abdominal pain --- Technical --- R10.84, Generalized abdominal pain CPT copyright 2017 [employer]. All rights reserved. The codes documented in this report are preliminary and upon stock or delivery clerk review may be revised to meet current compliance requirements. Dr. Nichole Iniguez MD Nichole Iniguez, 09/05/2018 3:01:57 PM Number of Addenda: 0 Note Initiated On: 08/31/2018 11:59 AM Procedure Date: 09/05/2018 11:59:00 AM This report has been signed electronically. [facility] 09/05/2018 11:5 9 AM CDT Joana Nieto DATA ACQUISITION TECHNICIAN-SHIP FITTER GI PROCED URE ORDERABLES Performing Organization Address City/State/[facility] Co de Phone Number [facility] [address] [place] [address] * URINALYSIS W/MICROSCOPIC REFLEX TO CULTURE (08/02/2018 8:49 AM CDT) Only the most recent of4 resultswithin the time period is included. Color UA Straw Straw, Yellow 08/02/2018 9:10 AM CDT [facility] Clarity UA Clear Clear 08/02/2018 9:10 AM CDT [facility] Glucose UA Negative Negative 08/02/2018 9:10 AM CDT [facility] Bilirubin UA Negative Negative 08/02/2018 9:10 AM [facility] Ketone UA Negative Negative 08/02/2018 9:10 AM [facility] Specific [place] UA 1.006 1.005 - 1.030 08/02/2018 9:10 AM [facility] Blood UA Negative Negative 08/02/2018 9:10 AM [facility] pH UA 6.0 5.0 - 8.0 pH 08/02/2018 9:10 AM [facility] Protein UA Negative Negative 08/02/2018 9:10 AM [facility] Urobilinogen UA Negative Negative mg/dL 08/02/2018 9:10 AM [facility] Nitrite UA Negative Negative 08/02/2018 9:10 AM [facility] Leukocyte UA Negative Negative 08/02/2018 9:10 AM [facility] RBC UA 0-2 None Seen, 0-2, 3-5 # /hpf 08/02/2018 9:10 AM [facility] WBC UA 0-5 None Seen, 0-5 # /hpf 08/02/2018 9:10 AM [facility] Bacteria UA None Seen None Seen 08/02/2018 9:10 AM [facility] Squamous Epithelial Cells 0-2 None Seen, 0-2, 3-5 /hpf 08/02/2018 9:10 AM [facility] Mucus UA 1+ /LPF 08/02/2018 9:10 AM [facility] Reflex Status Culture not indicated 08/02/2018 9:10 AM [facility] Urine URINE SPECIMEN OBTAINED BY CLEAN CATCH PROCEDURE / Unknown Collection / Unknown 08/02/2018 8:49 AM T 08/02/2018 8:54 AM [facility] Narrative [facility] - 08/02/2018 9:10 AM [facility] Anjali Tran MD LAB - URINALYSIS ORD ERABLES [facility] [address] [place] [address] * CULTURE URINE REFLEXED I (05/20/2018 4:28 PM CDT) Reflexive Urine Culture NO CULTURE INDICATED [facility] Comment: Test Performed at: [employer] [id number] [place] [id number] HEIDY VASQUEZ DO,MPH 05/20/2018 4:28 PM CDT 05/20/2018 4:29 PM CDT Link Roland DO LAB - MICROB IOLOGY ORDERABLES Performing Organization Address [facility] [place] [address] * C-REACTIVE PROTEIN (05/20/2018 4:28 PM CDT) Only the most recent of3 resultswithin the time period is included. C-Reactive Protein <0.2 <8.0 mg/L [facility] Comment: Test Performed at: [place] [id number] HEIDY VASQUEZ DO,MPH Blood BLOOD SPECIMEN / Unknown 05/20/2018 4:28 PM CDT 05/20/2018 4:29 PM CDT Link Roland DO LAB - CHEMIS TRY ORDERABLES Performing Organization Address [facility] Co de Phone Number [facility] [address] [place] [address] * ERYTHROCYTE SEDIMENTATION RATE (05/20/2018 4:28 PM CDT) Only the most recent of3 resultswithin the time period is included. Erythrocyte Sedimentation Rate Westergren 6 < OR = 20 mm/h [facility] Comment: Test Performed at: [employer] [facility] [place] [address] HEIDY VASQUEZ DO,MPH Blood BLOOD SPECIMEN / Unknown 05/20/2018 4:28 PM CDT 05/20/2018 4:29 PM CDT Link Roland DO LAB - HEMATO LOGY ORDERABLES Performing Organization Address City/[facility]/ZIP Co de Phone Number [facility] [address] [place] [address] * CHROMATIN ANTIBODY (03/03/2018 2:13 PM ELECTRICIAN RESEARCH) Chromatin Nucleosomal Antibody <1.0 NEG <1.0 NEG AI [facility] Comment: Test Performed at: [employer] [address] [facility] [place] [address] HEIDY VASQUEZ DO,MPH Blood BLOOD SPECIMEN / Unknown 03/03/2018 2:13 PM ELECTRICIAN RESEARCH 03/03/2018 2:15 PM ELECTRICIAN RESEARCH Link Duffypraveen CUM[facility] LAB - SEROLO GY ORDERABLES Performing Organization Address [facility] [place] [address] * CULTURE URINE REFLEXED (03/03/2018 2:13 PM ELECTRICIAN RESEARCH) [facility] Reflexive Urine Culture CULTURE INDICATED - RESULTS TO FOLLOW [facility] Comment: Test Performed at: [employer] [address] [place] [address] HEIDY VASQUEZ DO,MPH 03/03/2018 2:13 PM ELECTRICIAN RESEARCH 03/03/2018 2:15 PM ELECTRICIAN RESEARCH Link Vikas Luan [facility] LAB - MICROB IOLOGY ORDERABLES Performing Organization Address [facility] [place] [address] * TISSUE TRANSGLUTAMINASE AB IGA (03/03/2018 2:13 PM ELECTRICIAN RESEARCH) Pathologist [facility] TTG Antibody IgA <1 <4 U/mL [facility] Comment: Value Interpretation <4 U/mL: No Antibody Detected >or=4 U/mL: Antibody Detected Test Performed at: [employer]/[address] [address] ALEJANDRO HERNÁNDEZ MD,PHD Blood BLOOD SPECIMEN / Unknown 03/03/2018 2:13 PM ELECTRICIAN RESEARCH 03/03/2018 2:15 PM ELECTRICIAN RESEARCH Link Duffypra[employer] [place] LAB - SEROLO GY ORDERABLES Performing Organization Address [facility] [place] [address] * MARSH (SM) ANTIBODY SHERRI (03/03/2018 2:13 PM ELECTRICIAN RESEARCH) SM Antibody <1.0 NEG <1.0 NEG AI [facility] Comment: Test Performed at: [employer] [facility] [place] [address] HEIDY VASQUEZ DO,MPH Blood BLOOD SPECIMEN / Unknown 03/03/2018 2:13 PM ELECTRICIAN RESEARCH 03/03/2018 2:15 PM ELECTRICIAN RESEARCH Link Augustinfátima [facility] [employer] TRY ORDERABLES Performing Organization Address [facility] Co de Phone Number [facility] [id number] [place] [address] * NETWORK SUPPORT TECHNICIAN ANTIBODY (03/03/2018 2:13 PM ELECTRICIAN RESEARCH) Pathologist [facility] NETWORK SUPPORT TECHNICIAN Antibody <1.0 NEG <1.0 NEG AI [facility] Comment: Test Performed at: [employer] [facility] [place] [address] HEIDY VASQUEZ DO,MPH Blood BLOOD SPECIMEN / Unknown 03/03/2018 2:13 PM ELECTRICIAN RESEARCH 03/03/2018 2:15 PM ELECTRICIAN RESEARCH Link Augustinfátima CUM[place] [employer] TRY ORDERABLES Performing Organization Address [facility] [place] [address] * (ABNORMAL) VIDA BLOOD TITER (03/03/2018 2:13 PM ELECTRICIAN RESEARCH) Only the most recent of2 resultswithin the time period is included. Pathologist [facility] VIDA Pattern SPECKLED( A) [facility] Comment: Speckled pattern is associated with mixed connective tissue disease (MCTD), systemic lupus erythematosus (SLE), Sjogren's syndrome, dermatomyositis, and systemic sclerosis/polymyositis overlap. VIDA 1:160(H) titer [facility] Comment: Reference Range <1:40 Negative 1:40-1:80 Low Antibody Level >1:80 Elevated Antibody Level Test Performed at: [employer] [facility] [place] [address] HEIDY VASQUEZ DO,MPH 03/03/2018 2:13 PM ELECTRICIAN RESEARCH 03/03/2018 2:15 PM ELECTRICIAN RESEARCH Link Roland DO LAB - CHEMIS TRY ORDERABLES Performing Organization Address [facility]/ZIP Co de Phone Number [facility] [address] [place] [address] * (ABNORMAL) VIDA BLOOD SCREEN W/REFLEX TITER (03/03/2018 2:13 PM ELECTRICIAN RESEARCH) Pathologist [facility] VIDA Screen POSITIVE( A) NEGATIVE [facility] Comment: VIDA IFA is a first line screen for detecting the presence of up to approximately 150 autoantibodies in various autoimmune diseases. A positive VIDA IFA result is suggestive of autoimmune disease and reflexes to titer and pattern. Further laboratory testing may be considered if clinically indicated. Visit Physician FAQs for interpretation of all antibodies in the [place], prevalence, and association with diseases at http://education.Story [employer] College/ faq/ESQ144 Test Performed at: [employer] [address] [place] [address] HEIDY VASQUEZ DO,MPH VIDA Pattern SPECKLED( A) [facility] Comment: Speckled pattern is associated with mixed connective tissue disease (MCTD), systemic lupus erythematosus (SLE), Sjogren's syndrome, dermatomyositis, and systemic sclerosis/polymyositis overlap. VIDA 1:160(H) titer [facility] Comment: Reference Range <1:40 Negative 1:40-1:80 Low Antibody Level >1:80 Elevated Antibody Level Test Performed at: [employer] [address] [place] [address] HEIDY VASQUEZ DO,MPH Blood BLOOD SPECIMEN / Unknown 03/03/2018 2:13 PM ELECTRICIAN RESEARCH 03/03/2018 2:15 PM ELECTRICIAN RESEARCH Link Roland DO LAB - CHEMIS TRY ORDERABLES [facility] [address] [place] [address] * SS-A/SS-B (SJOGRENS) ANTIBODY PANEL (03/03/2018 2:13 PM ELECTRICIAN RESEARCH) Pathologist [facility] Sjogren's Antibodies (SSA) <1.0 NEG <1.0 NEG AI [facility] Sjogren's Antibodies (SSB) <1.0 NEG <1.0 NEG AI [facility] Comment: Test Performed at: [place] [address] HEIDY VASQUEZ DO,MPH Blood BLOOD SPECIMEN / Unknown 03/03/2018 2:13 PM ELECTRICIAN RESEARCH 03/03/2018 2:15 PM ELECTRICIAN RESEARCH Link Roland DO LAB - CHEMIS TRY ORDERABLES Performing Organization Address [facility] Co de Phone Number [place] [phone] [place] [address] * SCLERODERMA 70 (SCL) ANTIBODY (03/03/2018 2:13 PM ELECTRICIAN RESEARCH) Only the most recent of2 resultswithin the time period is included. SCL-70 Antibody <1.0 NEG <1.0 NEG AI [facility] Comment: Test Performed at: [employer] [address] HEIDY VASQUEZ DO,MPH Blood BLOOD SPECIMEN / Unknown 03/03/2018 2:13 PM ELECTRICIAN RESEARCH 03/03/2018 2:15 PM ELECTRICIAN RESEARCH Link Roland DO LAB - CHEMIS TRY ORDERABLES Performing Organization Address [facility] [place] [address] * DNA ANTIBODY DOUBLE STRANDED (03/03/2018 2:13 PM ELECTRICIAN RESEARCH) dsDNA Antibody <1 IU/mL [facility] Comment: IU/mL Interpretation < or = 4 Negative 5-9 Indeterminate > or = 10 Positive Test Performed at: [employer] [address] HEIDY VASQUEZ DO,MPH Blood BLOOD SPECIMEN / Unknown 03/03/2018 2:13 PM ELECTRICIAN RESEARCH 03/03/2018 2:15 PM ELECTRICIAN RESEARCH Link Roland DO LAB - HEMATO LOGY ORDERABLES Performing Organization Address [facility] Co de Phone Number [facility] [id number] [place] [address] * (ABNORMAL) VITAMIN D 25-HYDROXY (03/03/2018 2:13 PM ELECTRICIAN RESEARCH) Vitamin D, 25 Hydroxy 17(L) 30 - 100 ng/mL [facility] Comment: Vitamin D Status 25-OH Vitamin D: Deficiency: <20 ng/mL Insufficiency: 20 - 29 ng/mL Optimal: > or = 30 ng/mL For 25-OH Vitamin D testing on patients on D2-supplementation and patients for whom quantitation of D2 and D3 fractions is required, the QuestAssureD(TM) 25-OH VIT D, (D2,D3), LC/MS/MS is recommended: order code 51455 (patients >2yrs). For more information on this test, go to: http://education.Predictivez/faq/FLF350 (This link is being provided for informational/educational purposes only.) Test Performed at: [employer] [address] HEIDY VASQUEZ DO,MPH Blood BLOOD SPECIMEN / Unknown 03/03/2018 2:13 PM ELECTRICIAN RESEARCH 03/03/2018 2:15 PM ELECTRICIAN RESEARCH Link Roland DO LAB - CHEMIS TRY ORDERABLES Performing Organization Address City/[facility] Co de Phone Number [facility] [address] [place] [address] * CULTURE URINE (03/03/2018 2:13 PM ELECTRICIAN RESEARCH) Only the most recent of2 resultswithin the time period is included. Pathologist [facility] Culture [facility] Comment: CULTURE, URINE, ROUTINE MICRO NUMBER: [id number] TEST STATUS: FINAL SPECIMEN SOURCE: URINE SPECIMEN QUALITY: ADEQUATE RESULT: No Growth REPORT COMMENT: FASTING:NO Test Performed at: [employer] [address] HEIDY VASQUEZ DO,MPH 03/03/2018 2:13 PM ELECTRICIAN RESEARCH 03/03/2018 2:15 PM ELECTRICIAN RESEARCH Link Roland DO LAB - MICROB IOLOGY ORDERABLES Performing Organization Address [facility] Co de Phone Number [facility] [address] [place] [address] * (ABNORMAL) COMPLEMENT C4 (03/03/2018 2:13 PM ELECTRICIAN RESEARCH) Complement C4 10(L) 13 - 46 mg/dL [facility] Comment: Test Performed at: [employer] [facility] [place] [address] HEIDY VASQUEZ DO,MPH Blood BLOOD SPECIMEN / Unknown 03/03/2018 2:13 PM ELECTRICIAN RESEARCH 03/03/2018 2:15 PM ELECTRICIAN RESEARCH Link Roland DO LAB - SEROLO GY ORDERABLES Performing Organization Address [facility] [place] [address] * TSH (03/03/2018 2:13 PM ELECTRICIAN RESEARCH) Pathologist [facility] TSH 1.83 mIU/L [facility] Comment: Reference Range 1-19 Years 0.50-4.30 Ranges First trimester 0.26-2.66 Second trimester 0.55-2.73 Third trimester 0.43-2.91 Test Performed at: [employer] [facility] [place] [address] HEIDY VASQUEZ DO,MPH Blood BLOOD SPECIMEN / Unknown 03/03/2018 2:13 PM ELECTRICIAN RESEARCH 03/03/2018 2:15 PM ELECTRICIAN RESEARCH Link Roland DO LAB - CHEMIS TRY ORDERABLES Performing Organization Address [facility] [place] [address] * IMMUNOGLOBULINS IGG/IGM/IGA PANEL (03/03/2018 2:13 PM ELECTRICIAN RESEARCH) Pathologist [facility] IgA 188 70 - 432 mg/dL [facility] IgG 1277 893 - 1823 mg/dL [facility] IgM 68 52 - 367 mg/dL [facility] Comment: Test Performed at: [employer] SHERRI [employer]ts [facility] [address] HEIDY VASQUEZ DO,MPH Blood BLOOD SPECIMEN / Unknown 03/03/2018 2:13 PM ELECTRICIAN RESEARCH 03/03/2018 2:15 PM ELECTRICIAN RESEARCH Link Roland DO LAB - CHEMIS TRY ORDERABLES [facility] [address] [place] [address] * COMPLEMENT C3 (03/03/2018 2:13 PM ELECTRICIAN RESEARCH) Complement C3 110 82 - 173 mg/dL [facility] Comment: Test Performed at: [employer] [place] [address] [place] [address] HEIDY VASQUEZ DO,MPH Blood BLOOD SPECIMEN / Unknown 03/03/2018 2:13 PM ELECTRICIAN RESEARCH 03/03/2018 2:15 PM ELECTRICIAN RESEARCH Link Roland DO LAB - CHEMIS TRY ORDERABLES Performing Organization Address [facility] Co de Phone Number [facility] [address] [place] [address] * CT SINUS WO CONTRAST (02/18/2018 10:18 AM ELECTRICIAN RESEARCH) Anatomical Region Laterality Modality Head Computed Tomogra phy 02/18/2018 10:5 8 AM ELECTRICIAN RESEARCH Impressions 02/18/2018 11:29 AM ELECTRICIAN RESEARCH Paranasal sinus inflammatory changes as outlined. Polypoid mucosal thickening in the right maxillary and right sphenoid sinuses and scattered opacification in the ethmoid air cells. There is fluffy secretions within the sphenoid and frontal sinuses. Reading Radiologist: Elisabeth Ferguson MD on 02/18/2018 at 11:29 AM Narrative 02/18/2018 11:[address] SINUS WO CONTRAST*[id number] EXAMINATION: Computed tomography (CT) of the paranasal [...] Ferguson MD - 02/18/2018 CT SINUS WO CONTRAST*[id number] EXAMINATION: Computed tomography (CT) of the paranasal [...] CDT) VIDA Screen POSITIVE( A) NEGATIVE [facility] ([facility]) Comment: VIDA IFA is a first line screen for detecting the presence of up to approximately 150 autoantibodies in various autoimmune diseases. A positive VIDA IFA result is suggestive of autoimmune disease and reflexes to titer and pattern. Further laboratory testing may be considered if clinically indicated. Visit Physician FAQs for interpretation of all antibodies in the [place], prevalence, and association with diseases at http://education.Advice Wallet.Mercari/ faq/WPK621 dsDNA Antibody <1 IU/mL [facility] ([facility]) Comment: IU/mL Interpretation < or = 4 Negative 5-9 Indeterminate > or = 10 Positive Sjogren's Antibodies (SSA) <1.0 NEG <1.0 NEG AI [facility] ([facility]) Sjogren's Antibodies (SSB) <1.0 NEG <1.0 NEG AI [facility] ([facility]) SHERRI Marsh (SM) Antibody <1.0 NEG <1.0 NEG AI [facility] ([facility]) SHERRI NETWORK SUPPORT TECHNICIAN Antibody <1.0 NEG <1.0 NEG AI [facility] ([facility] ) Chromatin Nucleosomal <1.0 NEG <1.0 NEG AI [facility] ([facility]) Complement C3 205(H) 90 - 180 mg/dL [facility] ([facility]) Complement C4 23 16 - 47 mg/dL [facility] ([facility]) Complement Total CH50 >60(H) 31 - 60 U/mL [facility] ([facility]) Comment: Test Performed at: [employer] [address] [facility] [place] [address] HEIDY VASQUEZ DO,MPH 06/11/2016 10:3 2 AM CDT 06/11/2016 10:34 AM CDT Link Roland DO LAB - SEROLO GY ORDERABLES Performing Organization Address [facility] de Phone Number [facility] ([facility]) * TAYLOR-NOBLE VIRUS CHRONIC/ACTIVE INFECTION (06/11/2016 10:32 AM CDT) Pathologist [facility] Taylor-Noble Virus Antibody IgM VCA < OR = 0.90 [facility] ([facility]) Comment: Value Interpretation ----- < or = 0.90 Negative 0.91-1.09 Equivocal > or = 1.10 Positive Taylor-Noble Virus Antibody IgG Viral Capsid Antigen < OR = 0.90 [facility] ([facility]) Comment: Value Interpretation ----- < or = 0.90 Negative 0.91-1.09 Equivocal > or = 1.10 Positive Taylor-Noble Virus Nuclear Antigen Antibody IgG < OR = 0.90 [facility] ([facility]) Comment: Value Interpretation ----- < or = 0.90 Negative 0.91-1.09 Equivocal > or = 1.10 Positive Interpretation No Taylor-Noble virus antibody detected. [facility] ([facility]) Comment: Test Performed at: [employer] [address] [address] [employer] [address] HEIDY VASQUEZ DO,MPH Serum 06/11/2016 10:3 2 AM CDT 06/11/2016 10:34 AM CDT Link Roland DO LAB - SEROLO GY ORDERABLES Performing Organization Address [facility] de Phone Number [facility] ([facility]) * (ABNORMAL) PARVOVIRUS B19 IGG/IGM AB PANEL (06/11/2016 10:32 AM CDT) Parvovirus B19 Antibody IgG 5.3(H) [facility] ([facility]) Comment: REFERENCE RANGE: <0.9 INTERPRETIVE CRITERIA: <0.9 Negative 0.9 - 1.1 Equivocal >1.1 Positive IgG persists for years and provides life-long immunity. To diagnose current infection, consider Parvovirus B19 DNA, PCR. Parvovirus B19 Antibody IgM 3.2(H) [facility] ([facility]) Comment: REFERENCE RANGE: <0.9 INTERPRETIVE CRITERIA: [...] COMMENT: SPECIMEN TYPE->URINE FASTING:NO Test Performed at: [employer] [facility] [address] [place] [address] Alma LUIS 06/11/2016 10:3 2 AM CDT 06/11/2016 10:34 AM CDT Link Roland DO LAB - SEROLO GY ORDERABLES [facility] ([facility]) * ASO TITER (06/11/2016 10:32 AM CDT) ASO 13 <150 IU/mL [facility] ([facility]) Comment: Test Performed at: [employer] [address] [place] [address] HEIDY VASQUEZ DO,MPH Blood specimen (specimen) BLOOD SPECIMEN / Unknown 06/11/2016 10:32 AM CDT 06/11/2016 10:34 AM CDT Link Roland LAB - Arden Reed TRY ORDERABLES Performing Organization Address City/[facility]/ZIP Co de Phone Number [facility] ([facility]) * THYROID PEROXIDASE ANTIBODY (06/11/2016 10:32 AM CDT) Thyroid Peroxidase TPO Antibody 1 <9 IU/mL [facility] ([facility]) Comment: Test Performed at: [employer] [address] [employer] [address] HEIDY VASQUEZ DO,MPH Blood specimen (specimen) BLOOD SPECIMEN / Unknown 06/11/2016 10:32 AM CDT 06/11/2016 10:34 AM CDT Link Fernandezrajesh CUMMINGS [employer] TRY ORDERABLES Performing Organization Address [facility]/ZIP Or de Phone Number [facility] ([facility]) * THYROGLOBULIN ANTIBODY (06/11/2016 10:32 AM CDT) Thyroglobulin Antibody <1 < or = 1 IU/mL [facility] ([facility]) Comment: Test Performed at: [employer] [address] [employer] [address] HEIDY VASQUEZ DO,MPH Blood specimen (specimen) BLOOD SPECIMEN / Unknown 06/11/2016 10:32 AM CDT 06/11/2016 10:34 AM CDT Link Roland [employer] TRY ORDERABLES Performing Organization Address [facility]/ZIP Co de Phone Number [facility] ([facility]) * HLA TYPING B27 (06/11/2016 10:32 AM CDT) HLA-B27 NEGATIVE NEGATIVE [facility] ([facility]) Comment: Test Performed at: [employer]/[facility] [address] [place] [address] KATHY CRAWFORD MD PHD Blood specimen (specimen) BLOOD SPECIMEN / Unknown 06/11/2016 10:32 AM CDT 06/11/2016 10:34 AM CDT Link Bean Luan C[facility] [employer] TRY ORDERABLES Performing Organization Address [facility]/ZIP Co de Phone Number [facility] ([facility]) * TAYLOR-NOBLE VIRUS AB TO EARLY AG IGG (06/11/2016 10:32 AM CDT) Pathologist [facility] Taylor-Noble Virus Early Antigen Antibody < OR = 0.90 [facility] ([facility]) Comment: Value Interpretation ----- < or = 0.90 Negative 0.91-1.09 Equivocal > or = 1.10 Positive Test Performed at: [employer] [facility] [address] HEIDY VASQUEZ DO,MPH Blood specimen (specimen) BLOOD SPECIMEN / Unknown 06/11/2016 10:32 AM CDT 06/11/2016 10:34 AM CDT Link Vikas Luan C[facility] [employer] TRY ORDERABLES Performing Organization Address [facility] de Phone Number [facility] ([facility]) * DNASE ANTIBODY B (06/11/2016 10:32 AM CDT) Pathologist [facility] DNase B Antibody <95 <376 U/mL [facility] ([facility]) Comment: Test Performed at: [employer] [address] [address] TAMI BARRETO MD,FCAP Blood specimen (specimen) BLOOD SPECIMEN / Unknown 06/11/2016 10:32 AM CDT 06/11/2016 10:34 AM CDT Link Roland DO [employer] TRY ORDERABLES Performing Organization Address City/[facility]/ZIP Co de Phone Number [facility] ([facility]) * ALDOLASE (06/11/2016 10:32 AM CDT) [facility] Aldolase 4.9 3.4 - 8.6 U/L [facility] ([facility]) Comment: Test Performed at: [employer] [facility] [address] [address] [employer] [facility] [place] [address] HEIDY VASQUEZ DO,MPH Blood specimen (specimen) BLOOD SPECIMEN / Unknown 06/11/2016 10:32 AM CDT 06/11/2016 10:34 AM CDT Link Roland DO LAB - CHEMIS TRY ORDERABLES Performing Organization Address [facility] Phone Number [facility] ([facility]) * RHEUMATOID ARTHRITIS PANEL (06/11/2016 10:32 AM CDT) [facility] Rheumatoid Factor 9 <14 IU/mL [facility] ([facility]) Cyclic Citrullinated Peptide Antibody <16 UNITS [facility] ([facility]) Comment: Reference Range Negative: <20 Weak Positive: 20-39 Moderate Positive: 40-59 Strong Positive: >59 Interpretation These serologic results may be found in 10-20% of patients with polyarthritis that is [facility] ([facility]) Interpretation clinically and radiologically indistinguishable from RA. [facility] ([facility]) Comment: Test Performed at: [employer] [address] HEIDY VASQUEZ DO,MPH 06/11/2016 10:3 2 AM CDT 06/11/2016 10:34 AM CDT Link Roland DO LAB - SEROLO GY ORDERABLES Performing Organization Address [facility] Phone Number [facility] ([facility]) * LDH BLOOD (06/11/2016 10:32 AM CDT) [facility] LDH Total 179 110 - 250 U/L [facility] ([facility]) Comment: Test Performed at: [employer] [address] HEIDY VASQUEZ DO,MPH Blood specimen (specimen) BLOOD SPECIMEN / Unknown 06/11/2016 10:32 AM CDT 06/11/2016 10:34 AM CDT Link Roland DO LAB - CHEMIS TRY ORDERABLES Performing Organization Address [facility] Phone Number [facility] ([facility]) * CK BLOOD (06/11/2016 10:32 AM CDT) [facility] CK Total 61 <143 U/L [facility] ([facility]) Comment: Test Performed at: [employer] [facility] [address] [place] [address] HEIDY VASQUEZ DO,MPH Blood specimen (specimen) BLOOD SPECIMEN / Unknown 06/11/2016 10:32 AM CDT 06/11/2016 10:34 AM CDT Link Roland DO LAB - CHEMIS TRY ORDERABLES [facility] ([facility]) * LAB RESULTS ORDER (03/15/2014 2:13 PM ELECTRICIAN RESEARCH) Narrative 03/15/2014 2:13 PM ELECTRICIAN RESEARCH Ordered by an unspecified provider. Scanned Document LAB - THERAPEUTIC DR ROBLERO MONITORING ORDERABLES * XR ABD OBSTR SERIES (02/20/2014 12:05 PM ELECTRICIAN RESEARCH) Anatomical Region Laterality Modality Abdomen Radiographic Phyllis ging 02/20/2014 12:0 8 PM ELECTRICIAN RESEARCH Impressions 02/20/2014 12:09 PM ELECTRICIAN RESEARCH Moderate to large amount of stool in the colon. No evidence of intestinal obstruction. Narrative 02/20/2014 12:09 PM ELECTRICIAN RESEARCH Obstructive series performed February 20, 2014. History: [...] US ABD FOR APPENDICITIS (02/20/2014 12:00 PM ELECTRICIAN RESEARCH) Anatomical Region Laterality Modality Abdomen Ultrasound 02/20/2014 12:0 3 PM ELECTRICIAN RESEARCH Impressions 02/20/2014 12:07 PM ELECTRICIAN RESEARCH No sonographic evidence of appendicitis. These findings were discussed with Dr. Robles by Dr. Trent at 12:05 PM on 02/20/2014. Narrative 02/20/2014 12:07 PM ELECTRICIAN RESEARCH Exam: Abdominal sonogram limited History: 8-year-old female [...] AND LATERAL(most commonly ordered) (03/28/2013 12:35 PM ELECTRICIAN RESEARCH) Anatomical Region Laterality Modality Chest Radiographic Phyllis ging 03/28/2013 12:4 9 PM ELECTRICIAN RESEARCH Impressions 03/28/2013 12:49 PM ELECTRICIAN RESEARCH No acute disease Narrative 03/28/2013 12:49 PM ELECTRICIAN RESEARCH Chest, PA and lateral March 282013 Lungs, heart, and mediastinum are normal. There is no infiltrate, effusion, or pneumothorax. Procedure Note Jake Betts MD - 03/28/2013 Chest, PA and lateral March 282013 Lungs, heart, and mediastinum are normal. There is no infiltrate, effusion, or pneumothorax. IMPRESSION No acute disease Argenis Ge MD DIAGNOSTIC IMAGING ORDERABLES * URINALYSIS ROUTINE AUTO (03/28/2013 12:31 PM [facility]) Color UA Yellow Straw, Yellow, Dark Yellow 03/28/2013 12:48 PM [facility] Clarity UA Clear 03/28/2013 12:48 PM [facility] Specific [place] UA <=1.005 1.005 - 1.030 03/28/2013 12:48 PM [facility] pH UA 6.5 5.0 - 8.0 pH 03/28/2013 12:48 PM [facility] Protein UA Negative Negative 03/28/2013 12:48 PM [facility] Blood UA Negative Negative 03/28/2013 12:48 PM [facility] Leukocyte UA Negative Negative 03/28/2013 12:48 PM [facility] Nitrite UA Negative Negative 03/28/2013 12:48 PM [facility] Glucose UA Negative Negative 03/28/2013 12:48 PM [facility] Ketone UA Negative Negative 03/28/2013 12:48 PM [facility] Bilirubin UA Negative Negative 03/28/2013 12:48 PM [facility] Urobilinogen UA 0.2 0.1 - 1.0 EU/dL 03/28/2013 12:48 PM [facility] Urine Microscopy Urine microscopy to follow 03/28/2013 12:48 PM [facility] Urine URINE SPECIMEN OBTAINED BY CLEAN CATCH PROCEDURE / Unknown 03/28/2013 12:31 PM [facility] 03/28/2013 12:37 PM [facility] Argenis Ge MD LAB - URINALYSIS O RDERABLES Performing Organization Address City/State/[facility] Co de Phone Number [facility] [address] [place] [address] * URINALYSIS MICROSCOPIC ONLY (03/28/2013 12:31 PM [facility]) RBC UA 0-2 0-2, 2-5 # /hpf 03/28/2013 12:58 PM [facility] WBC UA 0-2 0-2, 2-5 # /hpf 03/28/2013 12:58 PM [facility] Bacteria UA Trace None Seen, Trace 03/28/2013 12:58 PM [facility] Epithelial Cell UA 0-2 0-2, 2-5 03/28/2013 12:58 PM [facility] Urine URINE SPECIMEN OBTAINED BY CLEAN CATCH PROCEDURE / Unknown 03/28/2013 12:31 PM [facility] 03/28/2013 12:37 PM [facility] Argenis Ge MD LAB - URINALYSIS O RDERABLES [facility] [address] [place] [address] Care Teams Climate Change Risk Assessor Relationship Specialty Start Date End Date Evelyne Avilez MD [address] [place] [id number] PCP - General 02/16/18
--- OUTSIDE RECORDS SUMMARY | 2024-05-10 10:20 | XMS_ITS | Referral Summary ---
Author Organization [facility] Address [address] [place] [place] [address] Care Team Providers Care Control Room Technician Name Role Phone Evelyne Avilez MD Primary Care Provider [phone] Source Comments [facility],non-owned Affiliates and Associated Physician Practices is amultiple site organization consisting of ambulatory clinics and hospital sitesin [place], [place], [place] and [place]. This disclosure is being madepursuant to the Care Everywhere program and may not contain all information available regarding this patient. Last updated 17.[facility] Allergies Active Allergy Reactions Criticality Noted Date [...] fluticasone propionate (FLONASE) 50 MCG/ACT nasal spray [place] 2 sprays into each nostril once daily [...] is not great. EBV PCR would not warp changer so not sending at this time. [...] 2:04 AM 08/03/2018 4:29 PM Care Teams Control Room Technician Relationship Specialty Start Date End Date Evelyne Avilez MD [address] [place] [address] PCP - General 02/16/18
--- OUTSIDE RECORDS SUMMARY | 2024-05-10 10:20 | XMS_ITS | Encounter Summary ---
Author Organization [facility] Address [address] [place] [address] Care Team Providers Care Flat Lock Machine Operator Name Role Phone Evelyne Avilez MD Primary Care Provider Encounter Details Date Type Department Care Team (Late st Contact Info) Description 08/05/2018 Telephone [facility] - GI [address] [place] [address] Joana Nieto, TEACHING ASSISTANT-TRANSPORTATION DISPATCH MANAGER [address] [place] [id number] Social History Tobacco Use Types Packs/Day Years [...] EGD w/dilation and Colon to 09/05/18 @ [address] Iniguez. email prep instructions to [email or web address] documented in this encounter Plan of Treatment Not on file documented as of this encounter Visit Diagnoses Not on filedocumented in this encounter Care Teams Flat Lock Machine Operator Relationship Specialty Start Date End Date Evelyne Avilez MD [address] [place] [id number] PCP - General 02/16/18 documented as of this encounter
--- NOTE | 2024-05-10 10:23 | ED.NAVMDI ---
HPI - Nausea/Vomiting/Diarrhea General Chief complaint: Nausea/Vomiting/Diarrhea Stated complaint: n/v Time Seen by Provider: 05/10/24 09:18 Source: patient Mode of arrival: ambulatory Limitations: no limitations History of Present Illness HPI Narrative: Patient is a 18-year-old female who presents the ED with report of nausea, vomiting. Patient reports she has had persistent nausea and vomiting over the last 3 days. Has been unable to keep down any food or drink. Difficulty even keeping down water. Reports diffuse abdominal cramping. Reports dizziness with movements. Reports subjective fevers. 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 Denies diarrhea, constipation. Last bowel movement was yesterday. Denies cough or cold symptoms. Related Data Allergies Allergy/AdvReac Type Severity Reaction Status Date / Time Penicillins Allergy Intermediate HIVES Verified 05/10/24 09:17 Review of Systems Review of Systems: All systems reviewed & are unremarkable except as noted in HPI. All systems reviewed & are unremarkable except as noted in HPI and below PMFSH Past Medical History Medical History Fibromyalgia Surgical History Surgical History No pertinent past surgical history Family History Family History Mother Family history non-contributory Social History Social History Smoking status: Never smoker Alcohol intake: never Substance use: never Living arrangements: with family Gender identity (if verbalized by the patient): Female Sexual Orientation (if Verbalized by the Patient): Straight or Heterosexual Spiritual care concerns: No Exam Narrative: GENERAL: Well appearing, well-nourished, non-toxic, in no acute distress. HEAD: Normocephalic, atraumatic. ENT: Slightly dry MMs. RESPIRATORY: Airway patent, respirations nonlabored. Clear to auscultation bilaterally, no rales, rhonchi, wheezing. CARDIOVASCULAR: Tachycardic with regular rhythm without murmurs, rubs, or gallops. ABDOMINAL: Soft, mild diffuse tenderness, nondistended. Slightly hypoactive BS. MUSCULOSKELETAL: Moves all extremities. No gross deformities. SKIN: Warm, dry, normal color. NEURO: A&O X3. Speech clear. Cranial nerves II-XII grossly intact. Steady gait. No ataxic movements. PSYCHIATRIC: Appropriate mood and affect. Normal interaction. Course Vital Signs Vital signs: Vital Signs Temperature 98.9 F 05/10/24 09:06 Pulse Rate 116 H 05/10/24 09:06 Respiratory Rate 20 05/10/24 09:06 Blood Pressure 98/58 L 05/10/24 09:06 Pulse Oximetry 98 05/10/24 09:06 Temperature 98.9 F 05/10/24 09:06 Pulse Rate 113 H 05/10/24 12:21 Respiratory Rate 19 05/10/24 12:21 Blood Pressure 110/78 05/10/24 12:21 Pulse Oximetry 100 05/10/24 12:21 MDM - Nausea/Vomiting/Diarrhea MDM Narrative Medical decision making narrative: Patient presented to ED with 3 day history of nausea, vomiting, unable to keep down food or drink. Patient is slightly hypotensive, tachycardic upon arrival. Fluids initiated. Patient is afebrile here. Cbc without leukocytosis. Stable H& H. CMP with bicarb of 21, minimal anion gap of 14. Kidney function is stable. Fluids initiated. Lactic acid within normal range. Magnesium borderline, IV replacement was ordered. Patient did not tolerate IV replacement well, c/o burning sensation. This was d/c. Will give oral replacement. Normal LFTs and lipase. UA with elevated specific gravity, 3+ ketones. Fluids ongoing. No other signs of infection. Urine negative. Viral swabs negative. CT scan of abdomen/pelvis was obtained and w/o acute findings. Patient given 2 L of fluid in the ED in addition to Zofran and magnesium supplementation. On re-evaluation, she is feeling improved. Able to tolerate p.o. intake. Discussed possibility of viral gastroenteritis. Feel she is safe for discharge home at this time. Will discharge with Zofran for home use. Recommended she follow up with PCP for further evaluation. Discussed very strict return precautions. Patient in agreement with plan. D/C in stable condition. Heart rate improved at time of D/C. Medical Records Attestation: I reviewed the patient's medical records. Lab Data Attestation: I reviewed the patient's lab results. 05/10/24 09:21 05/10/24 09:21 Labs: Lab Results 05/10/24 05/10/24 05/10/24 Range/Units 09:21 09:45 09:47 WBC 6.4 (4.5-10.0) K/mm3 RBC 4.72 (4.2-5.4) M/mm3 Hgb 14.9 (12.0-15.0) g/dL Hct 43.9 (37.0-47.0) % MCV 93.0 (80-100) fl MCH 31.6 (26-34) pg MCHC 33.9 (32-36) g/dl RDW 11.9 (11.5-14.5) % Plt Count 294 (150-375) k/mm3 MPV 9.8 (7.4-10.4) fl Immature Gran % (Auto) 0.3 (0-0.5) % Neut % (Auto) 90.3 H (45.5-73.1) % Lymph % (Auto) 5.0 L (18.3-44.2) % Esmeralda % (Auto) 4.1 (2.6-8.5) % Eos % (Auto) 0.0 (0-4.4) % Baso % (Auto) 0.3 (0.2-1.2) % Lymph # (Auto) 0.32 L (0.9-3.2) K/mm3 Esmeralda # (Auto) 0.3 (0.1-0.6) K/mm3 Eos # (Auto) 0.0 (0-0.3) K/mm3 Baso # (Auto) 0.0 (0.0-0.1) K/mm3 Abs Immat Gran (auto) 0.02 (0.00-0.031) K/mm3 Absolute Neuts (auto) 5.8 (1.3-6.7) K/mm3 Absolute Nucleated RBC 0.000 (0.0-0.012) K/mm3 Nucleated RBC % 0.0 (0.0-0.2) % Sodium 135 (134-143) mmol/L Potassium 3.5 (3.4-5.0) mmol/L Chloride 100 (98-107) mmol/L Carbon Dioxide 21 L (22-30) mmol/L Anion Gap 14 H (4-12) mmol/L BUN 13 (8-21) mg/dL Creatinine 0.54 L (0.7-1.0) mg/dL Estim Creat Clear Calc 117 ml/min Estimated GFR > 60 (59 - ) Glucose 107 (65-110) mg/dL Lactic Acid 1.2 (0.7-2.0) mmol/L Calcium 8.9 (8.9-10.7) mg/dL Magnesium 1.6 (1.6-2.3) mg/dL Total Bilirubin 0.9 (0.2-1.3) mg/dL AST 29 (14-36) U/L ALT 32 (6-35) U/L Alkaline Phosphatase 46 (45-116) U/L Total Protein 8.0 (6.3-8.6) g/dL Albumin 4.6 (3.7-5.6) g/dL Lipase 13 L (23-300) U/L Urine Color Yellow (Yellow) Urine Appearance Clear (Clear) Urine pH 5.5 (5.0-9.0) Ur Specific [place] 1.037 H (1.001-1.035) Urine Protein Trace (Negative) mg/dL Urine Glucose (UA) Negative (Negative) mg/dL Urine Ketones 3+ H (Negative) mg/dL Ur Blood (Man) Negative (Negative) Urine Nitrate Negative (Negative) Urine Bilirubin Negative (Negative) Urine Urobilinogen 0.2 (<2.0) mg/dL Leukocyte Esterase Rfl Negative (Negative) MARY/UL Urine RBC 0-2 (0-2) /hpf Urine WBC 0-5 (0-3) /hpf Ur Squamous Epith Cells Moderate (Few) /hpf Urine Bacteria 2+ H /hpf Urine Casts 0-2 POC Urine HCG, Qual Negative (Negative) Influenza A (RT-PCR) Negative (Negative) Influenza B (RT-PCR) Negative (Negative) RSV (RT-PCR) Negative (Negative) SARS-CoV-2 RNA (RT-PCR) Negative (Negative) Imaging Data Attestation: I personally reviewed and interpreted this imaging study as follows: Radiologist's impression: ITS Impressions Abdomen/Pelvis CT 05/10/24 10:37 IMPRESSION: 1. No etiology for the patient's symptoms. Discharge Plan Discharge Clinical Impression: Dehydration Nausea and vomiting Qualifiers: Vomiting type: unspecified Qualified Code(s): R11.2 - Nausea with vomiting, unspecified Patient Disposition: Home, Self-Care Condition: Stable Instructions: Antibiotic Form, Dehydration (ED), Clear Liquid Diet (ED), Acute Nausea and Vomiting (ED) Additional Instructions: Your symptoms may be related to a GI bug. Your work up here was otherwise reassuring. Utilize zofran as needed for further nausea. Increase fluid intake. Recommend electrolyte rich fluids, gatorade, pedialyte, body armour. Recommend clear liquids or bland diet until symptoms improve, such as bananas, rice, applesauce, toast, or crackers. You may use Tylenol, Bentyl as needed for further abdominal discomfort/cramping. Follow up with your primary care doctor for further evaluation. Return to the ED if you experience worsening or severe symptoms, unable to keep down food or drink, severe pain, fevers, rectal bleeding, vomiting blood, or any other symptoms of concern. Patient Language: Yakut Prescriptions: New dicyclomine 20 mg tablet 20 mg PO TID PRN (Reason: Abdominal Discomfort) Qty: 15 0RF ondansetron 4 mg tablet,disintegrating 4 mg PO Q8H PRN (Reason: nausea and vomiting) Qty: 15 0RF No Action doxycycline monohydrate 100 mg tablet 100 mg PO BID 7 Days Qty: 14 0RF methylprednisolone [Medrol (Coy)] 4 mg tablets,dose pack See Rx Instructions .ROUTE .COMPLEX Qty: 21 0RF Rx Instructions: orally per package directions Follow-up/Referrals: UNKNOWN,DOCTOR [Primary Care Provider] - Time of Disposition: 11:33
[2024-05-10] MEDS: ONDANSETRON INJ 4 MG/2 ML VIAL IV PUSH (10:24)
[2024-05-10 10:30] LABS: Magnesium 1.6 mg/dL (1.6-2.3)
[2024-05-10] MEDS: MAGNESIUM SULF 2 GM/WATER 50ML 2 GM/50 ML BAG IVPB (11:17)
[2024-05-10] MEDS: METOCLOPRAMIDE HCL INJ 10 MG/2 ML VIAL IV PUSH (12:00)
[2024-05-10] MEDS: MAGNESIUM OXIDE 400 MG TABLET PO (12:00)
[2024-05-10] MEDS: diphenhydrAMINE HCl INJ 50 MG/ML VIAL 25 MG IV PUSH (12:00)
--- NOTE | 2024-05-10 12:17 | PC.NURSE ---
pt called RN to room. states the the magnesium was burning. slowed the rate down. pt reports it was still burning. No redness or swelling noted around IV site. flushes without difficulty. Veronica INMAN made aware. states to stop the infusion and give PO magnesium instead.
[2024-05-10 12:21] VITALS: BP 110/78; PULSE 113; RESP 19; O2SAT 100
== END 2024-05-10 12:23 | disposition home or self-care (01) ==
PROVIDERS: Emergency Medicine; Emergency Provider Physician Assistant
DX: R11.2 Nausea with vomiting, unspecified (principal); E86.0 Dehydration; Z20.822 Contact with and (suspected) exposure to COVID-19; M79.7 Fibromyalgia
CPT/HCPCS: 36415; 74177; 80053; 81001; 81025; 83605; 83690; 83735; 85025; 87637; 96361; 96365; 96375; 99284; A9270; J1200; J2405; J2765; J3475; J7030; Q9967

== ENCOUNTER 2024-10-21 10:03 | Emergency (ER) | payer OTHER, SELFPAY ==
--- NOTE | ~2024-10-21 | XR_ITS ---
XR abdomen/kub 1V 10/21/2024 10:49 INDICATION: Abdomen pain. History of constipation. TECHNIQUE: KUB COMPARISON: None FINDINGS: Bowel gas pattern is normal. IUD is present in the pelvis. There is no evidence of free air , mass, organomegaly, ascites or obstruction. No abnormal calculi are seen. The bones appear intact . IMPRESSION: 1: No acute abdominal abnormality identified. Reviewed, dictated and finalized at location A.
[2024-10-21 10:14] VITALS: BP 116/68; PULSE 111; RESP 18; TEMP 37.1; O2SAT 100
--- NOTE | 2024-10-21 10:33 | ED.URI ---
HPI - URI/Sore Throat General Chief Complaint: Upper Respiratory Infection Stated Complaint: SINUS/NAUSEA Time Seen by Provider: 10/21/24 10:33 Source: patient Mode of arrival: ambulatory Limitations: no limitations History of Present Illness HPI Narrative: 19 yo F presents with c/o sinus pressure, congestion, PND, ear pressure for approx. 10 days. Also reports generalized ABD discomfort. hx of chronic constipation. Has not taken any OTC meds to treat constipation. Denies N/V. Afebrile. all systems reviewed and negative except as noted above. Related Data Allergies Allergy/AdvReac Type Severity Reaction Status Date / Time Penicillins Allergy Intermediate HIVES Verified 10/21/24 10:22 nicol Allergy Mild Rash Verified 10/21/24 10:22 PMFSH Past Medical History Medical History Fibromyalgia Surgical History Surgical History No pertinent past surgical history Family History Family History Mother Family history non-contributory Social History Social History Smoking status: Never smoker Alcohol intake: never Substance use: never Living arrangements: with family Gender identity (if verbalized by the patient): Female Sexual Orientation (if Verbalized by the Patient): Straight or Heterosexual Spiritual care concerns: No Comments At time of signature, agree with nursing past medical, surgical, social and family history. There is no relevant family history pertinent to the presenting complaint. Exam Narrative: GENERAL: This is a well-nourished, well-developed patient, in no apparent distress. HEAD: normocephalic, atraumatic. EYES: PERRL. Sclera clear/white. Vision is grossly intact. EARS: External ears normal, auditory canals clear and without drainage, TMs normal without perforation. Hearing grossly intact. NOSE: External nose normal with purulent nasal drainage. Frontal sinus tenderness on palpation.. THROAT: Mucous membranes moist, erythema postnasal drainage. No swelling or exudates. NECK: Neck supple, non-tender without lymphadenopathy, masses or thyromegaly. CARDIOVASCULAR: Regular rate and rhythm without murmurs, gallops, or rubs. RESPIRATORY: Clear to auscultation. Breath sounds equal bilaterally. No wheezes, rales, or rhonchi. GASTROINTESTINAL: Abdomen soft, non-tender, nondistended. Bowel sounds are active. No hepato-splenomegaly, or palpable masses. No guarding. SKIN: warm, Dry, intact with no suspicious lesions or rash, good texture and turgor. NEURO: awake, alert, and oriented to person, place and time. There were no obvious focal neurologic abnormalities. EXTREMITIES: No joint tenderness, effusion, or edema noted. Course Course Level of Care: Express Care Visit Vital Signs Vital signs: Vital Signs Temperature 37.1 C 10/21/24 10:14 Pulse Rate 111 H 10/21/24 10:14 Respiratory Rate 18 10/21/24 10:14 Blood Pressure 116/68 10/21/24 10:14 Pulse Oximetry 100 10/21/24 10:14 Temperature 37.1 C 10/21/24 10:14 Pulse Rate 111 H 10/21/24 10:14 Respiratory Rate 18 10/21/24 10:14 Blood Pressure 116/68 10/21/24 10:14 Pulse Oximetry 100 10/21/24 10:14 Reviewed MDM - URI/Sore Throat MDM Narrative Medical decision making narrative: Will treat patient with antibiotic for bacterial sinusitis due to duration of symptoms exam findings. X-ray of abdomen negative for bowel obstruction. Some stool noted on KUB but not significant. Recommend that if patient is feeling bloated and constipated has not had bowel movement to take [id number] MiraLax as directed on packaging. Patient will go to the ER for any worsening of her abdominal pain. Differential Diagnosis Differential diagnosis: Likely upper respiratory infection, sinusitis, viral infection, influenza and pharyngitis Imaging Data My impression: agree with radiologist Radiologist's impression: XR abdomen/kub 1V 10/21/2024 10:49 INDICATION: Abdomen pain. History of constipation. TECHNIQUE: KUB COMPARISON: None FINDINGS: Bowel gas pattern is normal. IUD is present in the pelvis. There is no evidence of free air, mass, organomegaly, ascites or obstruction. No abnormal calculi are seen. The bones appear intact. IMPRESSION: 1: No acute abdominal abnormality identified. Discharge Plan Discharge Clinical Impression: Acute bacterial sinusitis, Constipation Patient Disposition: Home Condition: Stable Instructions: Antibiotic Form, Sinusitis (ED) Additional Instructions: Take medications as prescribed to treat bacterial sinusitis. Drink at least 64 oz of water a day. Take [id number] MiraLax as directed on packaging to treat constipation. If you have severe abdominal pain, fever go to the ER. Patient Language: [place] Rican Prescriptions: New clindamycin HCl 300 mg capsule 300 mg PO Q8H 7 Days Qty: 21 0RF Claritin-D 12 Hour 5-120 mg tablet extended release 12 hr 1 tablet PO Q12H PRN (Reason: sinus symptoms) Qty: 20 0RF No Action doxycycline monohydrate 100 mg tablet 100 mg PO BID 7 Days Qty: 14 0RF methylprednisolone [Medrol (Coy)] 4 mg tablets,dose pack See Rx Instructions .ROUTE .COMPLEX Qty: 21 0RF Rx Instructions: orally per package directions dicyclomine 20 mg tablet 20 mg PO TID PRN (Reason: Abdominal Discomfort) Qty: 15 0RF ondansetron 4 mg tablet,disintegrating 4 mg PO Q8H PRN (Reason: nausea and vomiting) Qty: 15 0RF Follow-up/Referrals: PHYSICIAN,HOME WEATHERIZING WORKER [Primary Care Provider] - Time of Disposition: 11:18
== END 2024-10-21 11:25 | disposition home or self-care (01) ==
PROVIDERS: Emergency Provider Nurse Practitioner Family
DX: J34.89 Other specified disorders of nose and nasal sinuses (principal); J01.90 Acute sinusitis, unspecified; K59.00 Constipation, unspecified; M79.7 Fibromyalgia
CPT/HCPCS: 74018; 99213; G0463

== ENCOUNTER 2024-12-22 08:04 | Emergency (ER) | payer OTHER, SELFPAY | END 2024-12-22 18:29 | disposition left against medical advice (07) | LOC: EXPCOLL 08:06 | PROVIDERS: Emergency Provider Registered Nurse | DX: Z53.21 Procedure and treatment not carried out due to patient leaving prior to being seen by health care provider (principal) | CPT/HCPCS: 99199 ==

== ENCOUNTER 2024-12-22 08:13 | Emergency (ER) | payer OTHER, SELFPAY ==
[2024-12-22 08:15] VITALS: BP 114/62; PULSE 101; RESP 16; TEMP 36.4; O2SAT 100
--- NOTE | 2024-12-22 08:25 | ED.NAVMDI ---
HPI - Nausea/Vomiting/Diarrhea General Chief complaint: Nausea/Vomiting/Diarrhea Stated complaint: vomiting Time Seen by Provider: 12/22/24 08:25 Source: patient, RN notes reviewed and old records reviewed Mode of arrival: ambulatory Limitations: no limitations Related Data Allergies Allergy/AdvReac Type Severity Reaction Status Date / Time Penicillins Allergy Intermediate HIVES Verified 10/21/24 10:22 nicol Allergy Mild Rash Verified 10/21/24 10:22 [facility] Past Medical History Medical History Fibromyalgia Surgical History Surgical History No pertinent past surgical history Family History Family History Mother Family history non-contributory Social History Social History Smoking status: Never smoker Alcohol intake: never Substance use: never Living arrangements: with family Gender identity (if verbalized by the patient): Female Sexual Orientation (if Verbalized by the Patient): Straight or Heterosexual Spiritual care concerns: No Course Vital Signs Vital signs: Vital Signs Temperature 36.4 C 12/22/24 08:15 Pulse Rate 101 H 12/22/24 08:15 Respiratory Rate 16 12/22/24 08:15 Blood Pressure 114/62 12/22/24 08:15 Pulse Oximetry 100 12/22/24 08:15 Temperature 36.4 C 12/22/24 08:15 Pulse Rate 101 H 12/22/24 08:15 Respiratory Rate 16 12/22/24 08:15 Blood Pressure 114/62 12/22/24 08:15 Pulse Oximetry 100 12/22/24 08:15 Discharge Plan Discharge Patient Language: Omani Prescriptions: No Action doxycycline monohydrate 100 mg tablet 100 mg PO BID 7 Days Qty: 14 0RF methylprednisolone [Medrol (Coy)] 4 mg tablets,dose pack See Rx Instructions .ROUTE .COMPLEX Qty: 21 0RF Rx Instructions: orally per package directions clindamycin HCl 300 mg capsule 300 mg PO Q8H 7 Days Qty: 21 0RF Claritin-D 12 Hour 5-120 mg tablet extended release 12 hr 1 tablet PO Q12H PRN (Reason: sinus symptoms) Qty: 20 0RF dicyclomine 20 mg tablet 20 mg PO TID PRN (Reason: Abdominal Discomfort) Qty: 15 0RF ondansetron 4 mg tablet,disintegrating 4 mg PO Q8H PRN (Reason: nausea and vomiting) Qty: 15 0RF Follow-up/Referrals: PHYSICIAN,CASEY SAW OPERATOR [Primary Care Provider, Internal Medicine]
--- NOTE | 2024-12-22 08:26 | ED_ITS ---
HPI - Nausea/Vomiting/Diarrhea General Chief complaint: Nausea/Vomiting/Diarrhea Stated complaint: vomiting Time Seen by Provider: 12/22/24 08:25 Source: patient, RN notes reviewed and old records reviewed Mode of arrival: ambulatory Limitations: no limitations History of Present Illness HPI Narrative: 19 year old female who presents to [facility] care with complaints of eating a lions jillian mushroom last evening and then about 3 hours later developed nausea and vomiting and upper epigastric abdominal pain. Patient reports that she vomited several times during the night and did have some streaks of blood in vomit. Patient reports that she has not been able to eat or drink fluids since vomiting started. Patient reports some intermittent upper epigastric discomfort denies any diarrhea. Patient reports no pain to the lower abdomen, denies any fever, chills or sweats, denies any UTI symptoms. MD elicited complaint: nausea, vomiting and abdominal pain Onset (ago): day(s) (since last night) Description of vomiting: watery and other (has noted some blood streaks in emesis) Associated nausea: Yes Associated abdominal pain: Yes Location of pain: epigastric Pain consistency: intermittent Pain scale (0-10): 7 Quality: cramping and aching Treatment prior to arrival: none Related Data Allergies Allergy/AdvReac Type Severity Reaction Status Date / Time Penicillins Allergy Intermediate HIVES Verified 12/22/24 08:26 nicol Allergy Mild Rash Verified 12/22/24 08:26 Review of Systems Review of Systems: CONSTITUTIONAL: Denies fever, chills, or sweats. ENT: Denies rhinorrhea, congestion, sore throat, or otalgia. CARDIOVASCULAR: Denies chest pain, palpitations, or edema. RESPIRATORY: Denies cough or dyspnea. GASTROINTESTINAL: Reports intermittent epigastric abdominal pain, nausea, vomiting,no diarrhea. GENITOURINARY: Denies dysuria or hematuria. SKIN: Denies rash or itching. MUSCULOSKELETAL: Denies back pain, joint pain, or myalgia. NEUROLOGIC: Reports some headache, denies any numbness, or weakness. All systems reviewed & are unremarkable except as noted in HPI and below PMFSH Past Medical History Medical History Fibromyalgia Surgical History Surgical History No pertinent past surgical history Family History Family History Mother Family history non-contributory Social History Social History Smoking status: Never smoker Alcohol intake: never Substance use: never Living arrangements: with family Gender identity (if verbalized by the patient): Female Sexual Orientation (if Verbalized by the Patient): Straight or Heterosexual Spiritual care concerns: No Comments At time of signature, agree with nursing past medical, surgical, social and family history. There is no relevant family history pertinent to the presenting complaint Exam Narrative: GENERAL: Well-appearing, well-nourished, and in no acute distress. HEAD: Normocephalic, atraumatic. EYES: PERRLA, conjunctivae clear, and EOMI. ENT: Nares clear. Mucous membranes moist. Oropharynx without edema, erythema, or lesions. Tonsils not enlarged and without exudate. NECK: Supple. No lymphadenopathy CHEST: Speaks in full sentences. No respiratory distress. no cough noted SAO2 100% on room air HEART: Regular rate and rhythm. ABDOMEN: Soft, flat, nondistended. No guarding, no rebound tenderness, or rigidity,positive for some epigastric tenderness on palpation,. No pulsatilla masses. Bowel sounds present in all four quadrants. No organomegaly. Negative Khan?s sign. No periumbilical tenderness, no McBurney point tenderness No Supra public tenderness or distension. Good femoral pulses bilaterally. No hernia noted. No scars or surface trauma. positive for nausea and vomiting after ingestion of [employer] jillian mushroom last evening with symptoms starting about 3 hours after ingestion. Reports some streaks of blood in emesis, last emesis at 0500 this morning SKIN: Warm, dry, no rash. NEURO:? Alert and oriented x3. report some headache pain PSYCH: Normal mood and affect Course Course Emergency Course: Patient is aware of diagnosis, understands and agrees to treatment plan.? Anticipatory guidance given.? Patient agrees to follow-up as directed and is aware of reasons to seek care at the emergency department. Portions of this record may have been created with voice recognition software Level of Care: Express Care Visit Vital Signs Vital signs: Vital Signs Temperature 36.4 C 10/17/25 08:15 Pulse Rate 101 H 12/22/24 08:15 Respiratory Rate 16 12/22/24 08:15 Blood Pressure 114/62 12/22/24 08:15 Pulse Oximetry 100 12/22/24 08:15 Temperature 36.4 C 12/22/24 08:15 Pulse Rate 101 H 12/22/24 08:15 Respiratory Rate 16 12/22/24 08:15 Blood Pressure 114/62 12/22/24 08:15 Pulse Oximetry 100 12/22/24 08:15 Reviewed MDM - Nausea/Vomiting/Diarrhea MDM Narrative Medical decision making narrative: Strict instructions given for follow up in ED if increased emesis, any increase blood noted in emesis, any increased abdominal pain with verbalized understanding Differential Diagnosis Differential diagnosis: Likely food poisoning, gastroenteritis and other (epigastric abdominal pain) Medical Records Attestation: I reviewed the patient's medical records. Critical Care Time Critical Care Time Critical Care Time: No Discharge Plan Discharge Clinical Impression: Gastroenteritis, Food poisoning Patient Disposition: Home Condition: Stable Instructions: Gastroenteritis (ED), Acute Nausea and Vomiting (ED) Additional Instructions: Clear liquids for the next 8-10 hours, then advance to a bland diet as tolerated A bland diet can consist of--BRAT diet which is bananas, rice, applesauce, and toast Avoid fried, greasy, fatty, fried foods Avoid caffeine, nicotine, and alcohol Return to your regular diet in the next 3-4 days Medication as directed for nausea and vomiting Sometimes ibuprofen/Aleve can cause increased stomach upset [id number] Imodium if develop diarrhea Follow-up with her PCP if continued problems or uncontrolled pain If any increased pain increased vomiting or blood in emesis go to the emergency room If your symptoms persist, change or worsen significantly before you can contact your personal physician then please, without delay, go to the emergency department for further evaluation. Follow-up with PCP in 7-10 days or sooner if needed Patient Language: Tamazight Prescriptions: New ondansetron 4 mg tablet,disintegrating 4 mg PO Q6H PRN (Reason: nausea and vomiting) Qty: 14 0RF Rx Instructions: what ever preparation of medication that is covered by insurance famotidine [Pepcid] 40 mg tablet 40 mg PO DAILY Qty: 14 0RF Follow-up/Referrals: PHYSICIAN,DRIVER MANAGER [Primary Care Provider, Internal Medicine] Time of Disposition: 08:32 Quality Christine Coma Scale Eyes: Open Verbal: Oriented and Alert Motor: Follows Commands Christine Coma Total Score: 15
== END 2024-12-22 08:41 | disposition home or self-care (01) ==
PROVIDERS: Emergency Provider Registered Nurse
DX: K52.9 Noninfective gastroenteritis and colitis, unspecified (principal); A05.9 Bacterial foodborne intoxication, unspecified; M79.7 Fibromyalgia
CPT/HCPCS: 99213; G0463